=== PATIENT | female | born 1960 | race Caucasian/White ===

== ENCOUNTER → 2016-06-17 | Outpatient (CLI) | payer MEDICARE ==
--- NOTE | 2016-06-17 11:54 | EKG REPORT ---
SEVERITY:- ABNORMAL ECG - SINUS TACHYCARDIA IVCD, CONSIDER ATYPICAL LBBB : Confirmed by: Liz Dailey 17-Jun-2016 11:53:19
== END ==
LOC: OD 07:42
PROVIDERS: ATTEND Nurse Practitioner
DX: K92.1 Melena (principal); I25.9 Chronic ischemic heart disease, unspecified; R74.0 Nonspecific elevation of levels of transaminase and lactic acid dehydrogenase [LDH]; D69.49 Other primary thrombocytopenia; E55.0 Rickets, active; E66.9 Obesity, unspecified; Z12.4 Encounter for screening for malignant neoplasm of cervix; Z12.12 Encounter for screening for malignant neoplasm of rectum
CPT/HCPCS: 36415; 82306; 82607; 83036; 93005; 93010

== ENCOUNTER 2016-10-28 09:18 | Observation (INO) | payer MEDICARE ==
[2016-10-28] MEDS ORDERED: ASPIRIN 81 MG TABLET, CHEWABLE PO ONE (09:43)
--- NOTE | 2016-10-28 09:45 | ER Document Report ---
ED Medical Screen (RME) - General Chief Complaint: Chest Pain Stated Complaint: CHEST PAIN Time Seen by Provider: 10/28/16 09:43 Notes: Patient's chief complaint is chest pain. She says it feels like an elephant sitting on her chest. Started about 1 hour ago while she was urinating. Pain is located in the substernal region. She took aspirin. She tried 3 nitroglycerin and got some relief with them, but the symptoms and pain has returned to its severe level that it sat now. Patient has an extensive cardiac history including 2 bypass surgeries and multiple coronary artery stents. Hypertension. Bipolar disorder. TRAVEL OUTSIDE OF THE [place] IN LAST 30 DAYS: No - Related Data Allergies/Adverse Reactions: No Known Allergies Allergy (Verified 10/28/16 09:29) Past Medical History - Past Medical History Cardiac Medical History: Reports: Hx Congestive Heart Failure, Hx Coronary Artery Disease, Hx Hypertension Renal/ Medical History: Denies: Hx Peritoneal Dialysis Musculoskeltal Medical History: Reports Hx Arthritis Psychiatric Medical History: Reports: Hx Bipolar Disorder, Hx Depression Past Surgical History: Reports: Hx Appendectomy, Hx Cardiac Surgery - CABG x 2, stents, Hx Section, Hx Cholecystectomy, Hx Tubal Ligation - Immunizations Hx Diphtheria, Pertussis, Tetanus Vaccination: Yes Physical Exam - Vital signs Vitals: Temp Pulse Resp BP Pulse Ox 98.6 F 67 18 129/52 H 97 10/28/16 09:29 10/28/16 09:29 10/28/16 09:29 10/28/16 09:29 10/28/16 09:29 Course - Vital Signs Vital signs: Temp Pulse Resp BP Pulse Ox 98.6 F 67 18 129/52 H 97 10/28/16 09:29 10/28/16 09:29 10/28/16 09:29 10/28/16 09:29 10/28/16 09:29
[2016-10-28] MEDS ORDERED: NITROGLYCERIN 2% OINTMENT 1 GM PACKET TP ONE (10:22)
[2016-10-28 10:26] LABS: ABSOLUTE EOSINOPHILS # (AUTO) 0.1 10^3/uL (0.0-0.6); ABSOLUTE LYMPHOCYTES (AUTO) 0.8 10^3/uL (0.5-4.7); ABSOLUTE MONOCYTES (AUTO) 0.3 10^3/uL (0.1-1.4); ABSOLUTE NEUT (AUTO) 2.3 10^3/uL (1.7-8.2); BASOPHILS % (AUTO) 0.8 % (0-2); EOSINOPHILS % (AUTO) 3.5 % (0-6); HEMATOCRIT 35.3 % (36.0-47.0); HEMOGLOBIN 12.1 g/dL (12.0-15.5); LYMPHOCYTES % (AUTO) 22.3 % (13-45); MEAN CORPUSCULAR HEMOGLOBIN 31.1 pg (27.0-33.4); MEAN CORPUSCULAR HGB CONC 34.3 g/dL (32.0-36.0); MEAN CORPUSCULAR VOLUME 91 fl (80-97); MONOCYTES % (AUTO) 7.8 % (3-13); RED CELL DISTRIBUTION WIDTH 16.5 % (11.5-14.0); SEGMENTED NEUTROPHILS % (AUTO) 65.6 % (42-78); WHITE BLOOD COUNT 3.5 10^3/uL (4.0-10.5)
--- NOTE | 2016-10-28 10:35 | EKG REPORT ---
SEVERITY:- ABNORMAL ECG - SINUS RHYTHM NONSPECIFIC INTRAVENTRICULAR CONDUCTION DELAY : Confirmed by: Valentine Orlando MD 28-Oct-2016 10:34:12
[2016-10-28 10:39] LABS: ALANINE AMINOTRANSFERASE 28 U/L (9-52); ALBUMIN 3.6 g/dL (3.5-5.0); ALKALINE PHOSPHATASE 94 U/L (38-126); ANION GAP 10 (5-19); ASPARTATE AMINO TRANSFERASE 55 U/L (14-36); BILIRUBIN,DIRECT 0.4 mg/dL (0.0-0.4); BILIRUBIN,TOTAL 1.1 mg/dL (0.2-1.3); BLOOD UREA NITROGEN 11 mg/dL (7-20); CALCIUM 9.2 mg/dL (8.4-10.2); CARBON DIOXIDE 26 mmol/L (22-30); CHLORIDE 104 mmol/L (98-107); CREATINE KINASE 48 U/L (30-135); CREATININE RESULT 0.72 mg/dL (0.52-1.25); GLUCOSE 97 mg/dL (75-110); POTASSIUM 4.3 mmol/L (3.6-5.0); TOTAL PROTEIN 6.7 g/dL (6.3-8.2)
[2016-10-28 10:49] LABS: CREATINE KINASE MB 1.19 ng/mL (<4.55)
[2016-10-28 10:50] LABS: TROPONIN I < 0.012 ng/mL
--- NOTE | 2016-10-28 10:57 | ER Document Report ---
ED Cardiac - General Chief Complaint: Chest Pain Stated Complaint: CHEST PAIN Time Seen by Provider: 10/28/16 09:43 Notes: Patient is a 56-year-old female, past medical history multiple cardiac stents, CABG, HTN, CHF, presents with 2 hours of substernal chest pain that started while she was urinating this morning. She had this in the past and she required her stents. She took 3 of her sublingual nitros with some relief of her pain. In addition, she took 325 mg aspirin prior to arrival. Her last stress test was ~[address] Akins (partner of Dr. Carranza). Her PMD is Dr. To. She denies shortness of breath, back pain, leg swelling, hemoptysis, cough, nausea, vomiting, fevers, headache, numbness, tingling or radiation of pain. TRAVEL OUTSIDE OF THE [place] IN LAST 30 DAYS: No - Related Data Allergies/Adverse Reactions: No Known Allergies Allergy (Verified 10/28/16 09:29) Past Medical History - General Information source: Patient - Social History Smoking Status: Never Smoker Family History: Reviewed & Not Pertinent, Other - copd Patient has suicidal ideation: No Patient has homicidal ideation: No - Past Medical History Cardiac Medical History: Reports: Hx Congestive Heart Failure, Hx Coronary Artery Disease, Hx Hypertension Renal/ Medical History: Denies: Hx Peritoneal Dialysis Musculoskeltal Medical History: Reports Hx Arthritis Psychiatric Medical History: Reports: Hx Bipolar Disorder, Hx Depression Past Surgical History: Reports: Hx Appendectomy, Hx Cardiac Surgery - CABG x 2, stents, Hx Section, Hx Cholecystectomy, Hx Tubal Ligation - Immunizations Hx Diphtheria, Pertussis, Tetanus Vaccination: Yes Review of Systems - Review of Systems Notes: REVIEW OF SYSTEMS: CONSTITUTIONAL: -fevers, -chills EENT: -eye pain, -difficulty swallowing, -nasal congestion CARDIOVASCULAR: +chest pain, -syncope. RESPIRATORY: -cough, -SOB GASTROINTESTINAL: -abdominal pain, -nausea, -vomiting, -diarrhea GENITOURINARY: -dysuria, -hematuria MUSCULOSKELETAL: -back pain, -neck pain SKIN: -rash or skin lesions. HEMATOLOGIC: -easy bruising or bleeding. LYMPHATIC: -swollen, enlarged glands. NEUROLOGICAL: -altered mental status or loss of consciousness, -headache, - neurologic symptoms PSYCHIATRIC: -anxiety, -depression. ALL OTHER SYSTEMS REVIEWED AND NEGATIVE. Physical Exam - Vital signs Vitals: Temp Pulse Resp BP Pulse Ox 98.6 F 67 18 129/52 H 97 10/28/16 09:29 10/28/16 09:29 10/28/16 09:29 10/28/16 09:29 10/28/16 09:29 - Notes Notes: PHYSICAL EXAMINATION: GENERAL: Well-appearing, well-nourished and in no acute distress. HEAD: Atraumatic, normocephalic. EYES: Pupils equal round and reactive to light, extraocular movements intact, sclera anicteric, conjunctiva are normal. ENT: nares patent, oropharynx clear without exudates. Moist mucous membranes. NECK: Normal range of motion, supple without lymphadenopathy LUNGS: Breath sounds clear to auscultation bilaterally and equal. No wheezes rales or rhonchi. HEART: Regular rate and rhythm without murmurs ABDOMEN: Soft, nontender, normoactive bowel sounds. No guarding, no rebound. No masses appreciated. EXTREMITIES: Normal range of motion, no pitting or edema. No cyanosis. NEUROLOGICAL: Cranial nerves grossly intact. Normal speech, normal gait. Normal sensory and motor exams. PSYCH: Normal mood, normal affect. SKIN: Warm, Dry, normal turgor, no rashes or lesions noted. Course - Re-evaluation Re-evalutation: Pt with substernal chest pain. Her HEART score is 6. Symptoms atypical for PE or aortic dissection at this time. Her last stress test was 5 years ago. Pt will require Obs for further evaluation of her chest pain. She is chest pain free with nitro paste. 10/28/16 11:[address] Ren[place] and will bring patient in for Obs Tele. - Vital Signs Vital signs: Temp Pulse Resp BP Pulse Ox 98.6 F 67 19 129/52 H 97 10/28/16 09:29 10/28/16 09:29 10/28/16 10:05 10/28/16 09:29 10/28/16 10:00 - Laboratory Result Diagrams: 10/28/16 10:00 10/28/16 10:00 Laboratory results interpreted by me: 10/28/16 10/28/16 10:00 10:00 WBC 3.5 L Hct 35.3 L RDW 16.5 H Plt Count 91 L AST 55 H - Diagnostic Test Radiology reviewed: Image reviewed, Reports reviewed Radiology results interpreted by me: CXR: NAD - EKG Interpretation by Me EKG shows normal: Sinus rhythm, [place], Intervals, QRS Complexes, ST-T Waves Rate: Normal [place]/QRS: IVCD Discharge - Discharge Clinical Impression: Chest pain Qualifiers: Chest pain type: unspecified Qualified Code(s): R07.9 - Chest pain, unspecified Condition: Stable Disposition: ADMITTED OBSERVATION Admitting [facility] Admitted: Telemetry Referrals: JAZIEL MORA MD [Primary Care Provider] - Follow up as needed
[2016-10-28] MEDS ORDERED: NITROGLYCERIN 0.4 MG/TAB 25 TAB/BOTTLE SL PRN (12:14)
[2016-10-28] MEDS ORDERED: ONDANSETRON HCL INJ/PF 4 MG/2 ML SDV IV PRN (12:14)
[2016-10-28] MEDS ORDERED: MORPHINE SULFATE 10 MG/ML INJ IV PRN (12:14)
[2016-10-28] MEDS ORDERED: ISOSORBIDE MONONITRATE 30 MG TAB.ER.24H PO ONE (13:15)
--- NOTE | 2016-10-28 14:06 | HISTORY AND PHYSICAL E ---
History and Physical NAME: GUS GRANDE : 1960 AGE: 56Y ADMITTED: 10/28/2016 ROOM: ED09 CHIEF COMPLAINT: "There's an elephant sitting on my chest." HISTORY OF PRESENT ILLNESS: The patient is a 56-year-old female patient of Dr. Stearns and Dr. Orlando's practice who presents to the emergency department today from home with sudden onset of substernal chest tightness and heaviness at 0830 hours this morning, "as if an elephant were sitting on my chest." The pressure radiates up into her jaw and makes her feel breathless. She took 3 sprays of nitroglycerin at home and each time got some relief without complete resolution, at which point she call EMS as she had previously been instructed. On arrival here, she was given another dose of nitroglycerin and placed on oxygen and given a full dose of aspirin as well at 324 mg and is now chest pain free. She was on the toilet urinating at the time, not a particularly stressful situation. Her cardiac risk factors included prior coronary disease including stents x3 followed by a single vessel CABG, followed by 2 additional vessels bypassed most recently in 2008. She is a nondrinker and nonsmoker. There is no family history. She has never had difficulty with her cholesterol that she is aware and she does take an aspirin 325 mg everyday. She underwent stress testing approximately 2-[address] Orlando's office and was told it was "fine." She reports a relative sedentary lifestyle, she is morbidly obese with a BMI of 47 but she denies swelling of her lower extremities, calf pain, and she is not on any hormone replacement therapy. She has no prior history of thromboembolic disease. Evaluation in the emergency department so far is unrevealing. Initial set of cardiac enzymes and EKG showed no acute ischemic changes, however, given her multiple risk factors, we were asked to admit her for cardiac evaluation. ALLERGIES: No known drug allergies. PAST MEDICAL HISTORY: 1. Coronary vascular disease. 2. Morbid obesity. 3. Bipolar disorder. 4. Insomnia. PAST SURGICAL HISTORY: 1. Appendectomy. 2. Cholecystectomy. 3. section. SOCIAL HISTORY: She is a lifetime nonsmoker, drinks an occasional alcoholic beverage on holidays, and denies illicit drug use. FAMILY HISTORY: Negative for coronary artery disease in mom, dad, brothers, and sisters. HOME MEDICATIONS: 1. Aspirin 325 mg daily. 2. Toprol 25 mg b.i.d. 3. Imdur 30 mg daily. 4. Lamotrigine 200 mg at bedtime. 5. Cymbalta 90 mg daily. 6. Ambien 10 mg at bedtime. PHYSICAL EXAMINATION: VITAL SIGNS: Reviewed and are currently stable. Her blood pressure is 136/61, heart rate is in the 60s and regular without ectopy on the monitor, she is afebrile, she is in no respiratory distress, and sats are 100% on 2 L nasal cannula at present. GENERAL: In general, this is morbidly obese, very pleasant, middle aged female is currently sitting upright in bed in no acute distress. Alert and oriented to person, place, and time. HEENT: Head is normocephalic, atraumatic. Extraocular muscles are intact, sclerae are anicteric. Oral mucosa is moist. CARDIAC: Regular rate and rhythm with a soft 2/6 holosystolic murmur heard best at the left second intercostal space that is nonradiating, otherwise, normal S1, S2. VASCULAR: Radial pulses are 2+ and symmetric. Carotid pulses are 2+ and symmetric. There is no carotid bruit. No abdominal bruit. RESPIRATORY: Lungs are clear to auscultation bilaterally with good air entry at the bases and no respiratory distress or accessory muscle use. ABDOMEN: Morbidly obese, soft, nontender, nondistended with good bowel sounds throughout. Difficult to appreciate any masses or hepatomegaly due to the size. EXTREMITIES: There is no cyanosis, clubbing, or edema. There is no palpable cords in the calves. PSYCHIATRIC: Normal affect, normal mood. SKIN: Warm, dry, no rash. DIAGNOSTICS: EKG shows a normal sinus rhythm with a heart rate of 65. There are no ST segment depressions or elevations or T wave inversions to suggest acute ischemia. There is a nonspecific interventricular conduction delay most notable in leads III and V4 and V5. Corrected QT interval 441, axis is 8 degrees. Chest x-ray shows no acute cardiopulmonary disease. No cardiomegaly. Review of her labs: CBC shows a borderline pancytopenia that is chronic for her. WBC is 3.5, H and H 12 and 35, platelet count of 91. Her chemistry including LFTs show no abnormalities. Renal function is good with a creatinine of 0.7. Her initial CKMB and troponin are both within normal limits. ASSESSMENT: 1. Chest pain in a patient with known atherosclerotic coronary vascular disease, previous stenting, and coronary bypass grafting. 2. Cardiac murmur not otherwise specified. 3. Morbid obesity. 4. Bipolar disorder. 5. Insomnia. PLAN: To admit the patient to an observation monitored bed overnight for cardiac rule out with serial cardiac enzymes, EKGs, and echocardiogram given the cardiac murmur to make sure there are no new wall motion abnormalities or valvular abnormalities that would warrant further investigation. We will check a stat D-dimer given her morbid obesity and relative sedentary lifestyle and if markedly elevated, we will check a CTA of the chest to rule out thromboembolic disease. We will check a lipid panel in the morning. If she rules out for acute ischemia, then recommend close outpatient followup with her stone repairer to decide on the need for elective heart cath given her multiple risk factors and elevated HEART score. The patient is in agreement with this treatment plan, expresses no concerns about staying overnight, and is willing to proceed. All questions were asked and answered to her satisfaction. DICTATING PHYSICIAN: BÁRBARA NERI M.D. [id number] PHY#: [id number] ID: [id number] JOB#: [id number] ACCT: [id number] cc:BÁRBARA NERI M.D. >
--- NOTE | 2016-10-28 16:33 | XCELERA REPORT ---
[address] [address] Transthoracic Echocardiogram Report Name: GUS GRANDE Age: 56 yrs Gender: Female : 1960 Patient Status: Inpatient Patient Location: [id number]\S\402\S\A Study Date: 10/28/2016 03:13 PM Height: 67 in Weight: 302 lb BSA: 2.4 m2 Procedure: A complete two-dimensional transthoracic echocardiogram was performed (2D, M-mode, spectral and color flow Doppler). The study was technically difficult with many images being suboptimal in quality. Reason For Study: CP Ordering Physician: BÁRBARA NERI Performed By: Berto Brooke Interpretation Summary The study was technically difficult with many images being suboptimal in quality. The left ventricular ejection fraction is normal. Doppler measurements suggest pseudonormalized left ventricular relaxation, which is associated with grade II/IV or mild to moderate diastolic dysfunction There is mild concentric left ventricular hypertrophy. The left ventricle is grossly normal size. Wall motion cannot be accurately commented on, but no definite regional wall motion abnormalities noted. The right ventricle is mildly dilated. The right ventricular systolic function is normal. The right atrium is moderately dilated. The left atrium is severely dilated. There is a mild amount of mitral regurgitation There is no mitral valve stenosis. There is no aortic valve stenosis No aortic regurgitation is present. There is a trace to mild amount of tricuspid regurgitation There is mild pulmonary hypertension by echo Right ventricular systolic pressure is estimated to be elevated at 30- 40mmHg. The aortic root is not well visualized. The inferior vena cava appeared normal and decreased > 50% with respiration (RAP 5-10 mmHg) There is no pericardial effusion. MMode/2D Measurements \T\ Calculations RVDd: 3.1 cm LVIDd: 5.8 cm FS: 34.2 % Ao root diam: 3.0 cm IVSd: 1.2 cm LVIDs: 3.8 cm EDV(Teich): 166.0 ml LVPWd: 1.2 cm ESV(Teich): 62.3 ml Ao root area: 7.1 cm2 EF(Teich): 62.5 % LA dimension: 6.1 cm Doppler Measurements \T\ Calculations MV E max urbano: MV P1/2t max urbano: Ao V2 max: LV V1 max P.3 cm/sec 115.7 cm/sec 164.8 cm/sec 4.6 mmHg MV A max urbano: MV P1/2t: 60.4 msec Ao max PG: LV V1 max: 88.3 cm/sec 10.9 mmHg 106.7 cm/sec MV E/A: 1.3 MVA(P1/2t): 3.6 cm2 MV dec slope: 561.2 cm/sec2 PA V2 max: TR max urbano: RAP systole: 131.6 cm/sec 229.4 cm/sec 10.0 mmHg PA max PG: TR max P.1 mmHg 6.9 mmHg RVSP(TR): 31.1 mmHg Left Ventricle The left ventricle is grossly normal size. There is mild concentric left ventricular hypertrophy. The left ventricular ejection fraction is normal. Doppler measurements suggest pseudonormalized left ventricular relaxation, which is associated with grade II/IV or mild to moderate diastolic dysfunction. Wall motion cannot be accurately commented on, but no definite regional wall motion abnormalities noted. Right Ventricle The right ventricle is mildly dilated. There is normal right ventricular wall thickness. The right ventricular systolic function is normal. Atria The right atrium is moderately dilated. The left atrium is severely dilated. Interarterial septum not well visualized and not well dopplered. Cannot comment on ASD/PFO presence. Mitral Valve There is mild mitral leaflet calcification. There is mild mitral annular calcification. There is no mitral valve stenosis. There is a mild amount of mitral regurgitation. Aortic Valve The aortic valve is not well visualized secondary to technical limitations. There is no aortic valve stenosis. No aortic regurgitation is present. Tricuspid Valve The tricuspid valve is not well visualized secondary to technical limitations. There is no tricuspid stenosis. There is a trace to mild amount of tricuspid regurgitation. There is mild pulmonary hypertension by echo. Right ventricular systolic pressure is estimated to be elevated at 30-40mmHg. Pulmonic Valve The pulmonic valve is not well visualized. Great Vessels The aortic root is not well visualized. The inferior vena cava appeared normal and decreased > 50% with respiration (RAP 5-10 mmHg). Effusions There is no pericardial effusion. : BÁRBARA NERI > Liz Dailey
[2016-10-28 17:10] LABS: CREATINE KINASE MB 1.09 ng/mL (<4.55)
[2016-10-28 17:16] LABS: TROPONIN I < 0.012 ng/mL
[2016-10-28] MEDS: METOPROLOL TARTRATE 25 MG TABLET PO SCH (21:23)
[2016-10-28] MEDS ORDERED: ATORVASTATIN CALCIUM 40 MG TABLET PO SCH (22:00)
[2016-10-28] MEDS ORDERED: LAMOTRIGINE 100 MG TABLET PO ONE (22:30)
[2016-10-28] MEDS ORDERED: LAMOTRIGINE 100 MG TABLET PO SCH (22:30)
[2016-10-28] MEDS ORDERED: ZOLPIDEM TARTRATE 5 MG TABLET PO PRN (22:47)
[2016-10-28 23:32] LABS: TROPONIN I < 0.012 ng/mL
[2016-10-29 04:58] LABS: CHOLESTEROL 161.75 mg/dL (0-200); Direct HDL 59 mg/dL (>40); TRIGLYCERIDES 201 mg/dL (<150)
[2016-10-29 05:08] LABS: DIRECT LDL 56 mg/dL (<100)
[2016-10-29 05:09] LABS: CREATINE KINASE MB 0.76 ng/mL (<4.55)
[2016-10-29 05:21] LABS: TROPONIN I < 0.012 ng/mL; VLDL CHOLESTEROL 40.2 mg/dL (10-31)
[2016-10-29] MEDS ORDERED: LANSOPRAZOLE 30 MG TAB.RAP.DR PO SCH (06:00)
--- NOTE | 2016-10-29 07:11 | EKG REPORT ---
SEVERITY:- ABNORMAL ECG - SINUS RHYTHM NONSPECIFIC INTRAVENTRICULAR CONDUCTION DELAY : Confirmed by: Valentine Orlando MD 29-Oct-2016 07:10:51
[2016-10-29 08:54] VITALS: BP 130/48
[2016-10-29] MEDS: METOPROLOL TARTRATE 25 MG TABLET PO SCH (09:08)
[2016-10-29] MEDS ORDERED: ASPIRIN 325 MG TABLET, ENT COATED PO SCH (10:00)
[2016-10-29] MEDS ORDERED: ISOSORBIDE MONONITRATE 30 MG TAB.ER.24H PO SCH (10:00)
--- NOTE | 2016-10-29 19:36 | DISCHARGE SUMMARY E ---
Discharge Summary NAME: GUS GRANDE : 1960 AGE: 56Y ADMITTED: 10/28/2016 DISCHARGED: 10/29/2016 DISCHARGE DIAGNOSES: 1. Chest pain. 2. CAD/ASCVD. 3. Morbid obesity. 4. Bipolar disorder. 5. Insomnia. DISCHARGE MEDICATIONS: 1. Aspirin 325 mg daily. 2. Vitamin D 5000 units daily. 3. Duloxetine 90 mg daily. 4. Isosorbide dinitrate 30 mg daily. 5. Lamotrigine 200 mg at bedtime. 6. Loratadine 10 mg daily. 7. Metoprolol tartrate 25 mg b.i.d. 8. Nitroglycerin spray as needed for chest pain. 9. Zolpidem 5 mg at bedtime. DIAGNOSTIC PROCEDURES: Echocardiogram shows grade 2 [id number] diastolic dysfunction with mild concentric left ventricular hypertrophy. No wall motion abnormalities were grossly identified but it was a technically difficult study. Right ventricle was mildly dilated. Right atrium moderately dilated with severe dilatation in the left atrium. Mild amount of mitral regurgitation. Mild amount of tricuspid regurgitation with mild pulmonary hypertension. Aortic root was not well visualized. Laboratory evaluation including serial cardiac enzymes were negative x4. Cholesterol panel shows triglycerides of 201, cholesterol 162, LDL is 56, VLDL is 40, and HDL is 59. CHIEF COMPLAINT: "There is an elephant sitting on my chest." HISTORY OF PRESENT ILLNESS: This is a 56-year-old female patient of Dr. Stearns and Dr. Orlando who presented to the emergency department from home with sudden onset of substernal chest tightness and heaviness occurring at 0830 the morning of her arrival and described as an elephant sitting on her chest. She reported the pressure radiating up into her jaw and leaving her breathless. She took 3 sprays of nitro intranasal and each time got some relief without complete resolution, at which point she called EMS as she had been instructed to do. On arrival she was given another dose of nitroglycerin and placed on oxygen with a full dose of aspirin provided and was then chest pain free. She has significant cardiac risk factors with prior stenting and a total of 3-vessel coronary artery bypass grafting, most recently in 2008. As a result, we were asked to admit the patient for further evaluation and management. She was placed on telemetry without any significant ectopy noted overnight and she ruled out for acute cardiac ischemia with negative cardiac enzymes x4 and a negative echocardiogram for acute ischemia. She had no recurrence of her symptoms since her admission. She has an established relationship with Dr. Orlando and an established disagreement with automation lead tanning solution maker and so has elected not to perform stress testing at this facility at this time. She is hemodynamically stable and has ruled out for acute ischemia, and so I do believe she can complete her workup as an outpatient. I recommend close outpatient followup with her automation lead next week for further risk stratification and they can perform in-office stress testing if so desired or refer to cardiac cath center of her choice if warranted. She is in agreement with this treatment plan. She is to return to the emergency department if she were to have any decompensation in her condition or recurrence of her symptoms and states clear understanding and willingness to do so. On the day of discharge, she is sitting upright in bed, alert, oriented to person, place and time, breathing easily without any difficulty. Cardiac is regular rate and rhythm with a soft 2/6 holosystolic murmur heard best at the right second intercostal space, nonradiating in nature. Abdomen is obese, soft, nontender, nondistended, with good bowel sounds throughout. No edema of the extremities. No JVD. Radial pulses are 2+ and symmetric. At this point she is stable for discharge home. DICTATING PHYSICIAN: BÁRBARA NERI M.D. [id number] PHY#: [id number] ID: [id number] JOB#: [id number] ACCT: [id number] cc:BÁRBARA NERI M.D. >
== END 2016-10-29 11:37 | disposition home or self-care (01) ==
LOC: ER 09:18 → UNDOADMOB 12:10 → EH 12:10 → 4N 15:52
PROVIDERS: ADMIT Internal Medicine; ATTEND Internal Medicine
DX: R07.89 Other chest pain (principal); I25.10 Atherosclerotic heart disease of native coronary artery without angina pectoris; E66.01 Morbid (severe) obesity due to excess calories; F31.9 Bipolar disorder, unspecified; G47.00 Insomnia, unspecified; I51.7 Cardiomegaly; I08.1 Rheumatic disorders of both mitral and tricuspid valves; I27.2 Other secondary pulmonary hypertension; D61.818 Other pancytopenia; R01.1 Cardiac murmur, unspecified; I51.89 Other ill-defined heart diseases; Z95.5 Presence of coronary angioplasty implant and graft; Z95.1 Presence of aortocoronary bypass graft; Z79.82 Long term (current) use of aspirin; Z68.42 Body mass index [BMI] 45.0-49.9, adult; Z90.49 Acquired absence of other specified parts of digestive tract; Z82.5 Family history of asthma and other chronic lower respiratory diseases
CPT/HCPCS: 93005 ×2; 99285; 36415 ×2; 82553 ×2; 82550; 85025; 80053; 84484 ×2; 85379; 80061; 93306; 71010; 93010 ×2; G0378 ×3; A9270 ×6; J3490 ×2

== ENCOUNTER 2017-01-01 14:32 | Emergency (ER) | payer MEDICARE ==
--- NOTE | 2017-01-01 15:03 | ER Document Report ---
ED Syncope and Near Syncope - General Chief Complaint: Syncope Stated Complaint: DIZZINESS Time Seen by Provider: 01/01/17 14:42 Mode of Arrival: Medic Information source: Patient, Relative Notes: Patient is a 56-year-old female who presents to the ER via EMS today for syncopal episode that occurred prior to arrival. Patient states that she has been sick with strep throat over the past week, started on amoxicillin yesterday , has had body aches and chills but did not feel dizzy until she got up to go to the bathroom prior to arrival. She states that this time she did feel lightheaded and "blacked out." She does not remember passing out but does remember waking up on the floor where her daughter had guided her to the floor. She did not hit her head per daughter. She states this has happened before but it was years ago. She states that this morning she did have one episode of dark and tarry stools. She has never had any bleeding from her rectum before. She denies any nausea vomiting or abdominal pain, fevers or chills at this time. TRAVEL OUTSIDE OF THE [place] IN LAST 30 DAYS: No - Related Data Allergies/Adverse Reactions: No Known Allergies Allergy (Verified 10/28/16 09:29) Past Medical History - General Information source: Patient, Relative - Social History Smoking Status: Unknown if Ever Smoked Family History: Reviewed & Not Pertinent, Other - copd - Past Medical History Cardiac Medical History: Reports: Hx Congestive Heart Failure, Hx Coronary Artery Disease, Hx Hypertension Renal/ Medical History: Denies: Hx Peritoneal Dialysis Musculoskeltal Medical History: Reports Hx Arthritis Psychiatric Medical History: Reports: Hx Bipolar Disorder, Hx Depression Past Surgical History: Reports: Hx Appendectomy, Hx Cardiac Surgery - CABG x 2, stents, Hx Section, Hx Cholecystectomy, Hx Tubal Ligation - Immunizations Hx Diphtheria, Pertussis, Tetanus Vaccination: Yes Review of Systems - Review of Systems Constitutional: See HPI EENT: See HPI Cardiovascular: No symptoms reported Respiratory: No symptoms reported Gastrointestinal: See HPI Genitourinary: No symptoms reported Female Genitourinary: No symptoms reported Musculoskeletal: No symptoms reported Skin: No symptoms reported Hematologic/Lymphatic: No symptoms reported Neurological/Psychological: See HPI Physical Exam - Vital signs Vitals: Pulse Resp BP Pulse Ox 78 19 139/40 H 100 01/01/17 14:33 01/01/17 14:33 01/01/17 14:33 01/01/17 14:33 - Notes Notes: PHYSICAL EXAMINATION: GENERAL: weak appearing, but in no acute distress. HEAD: Atraumatic, normocephalic. EYES: Pupils equal round and reactive to light, extraocular movements intact, sclera anicteric, conjunctiva are normal. ENT: ear canals without erythema or foreign body, TMs pearly ratliff with good bony landmarks, nares patent, oropharynx clear without exudates. Moist mucous membranes. NECK: Normal range of motion, supple without lymphadenopathy LUNGS: CTAB and equal. No wheezes rales or rhonchi. HEART: Regular rate and rhythm without murmurs ABDOMEN: Soft, no tenderness. No guarding, no rebound BACK: no vertebral tenderness, normal ROM GI/: no CVA tenderness rectal: dark, tarry blood to buttocks and around anus, in underwear EXTREMITIES: Normal range of motion, no pitting edema. No cyanosis. NEUROLOGICAL: Cranial nerves grossly intact. Normal sensory/motor exams. PSYCH: Normal mood, normal affect. SKIN: Warm, Dry, normal turgor, no rashes or lesions noted Course - Re-evaluation Re-evalutation: 01/01/17 16:21 Patient's hemoglobin is 6.6, hematocrit of 19, patient is obviously having dark , tarry stools rectal exam, type and screen, 2 units of packed red blood cells have been ordered at this time. Patient is receiving IV fluids. Dr. Fidel oFreman , hospitalist at [facility] agreed to accept patient at this time as we do not have gastroenterology regional guide. 01/01/17 21:32 transport here to get pt, no complaints at this time. stable for discharge. 01/04/17 16:00 01/04/17 16:00 - Vital Signs Vital signs: Temp Pulse Resp BP Pulse Ox 98.7 F 78 18 127/81 H 99 01/01/17 20:35 01/01/17 19:15 01/01/17 21:01 01/01/17 21:01 01/01/17 21:01 - Laboratory Result Diagrams: 01/01/17 14:40 01/01/17 14:40 Laboratory results interpreted by me: 01/01/17 01/01/17 01/01/17 14:40 14:40 15:45 RBC 2.22 L Hgb 6.6 L Hct 19.5 L RDW 16.3 H Plt Count 101 L BUN 40 H Glucose 138 H Total Protein 5.4 L Albumin 2.8 L Crossmatch See Detail Discharge - Discharge Clinical Impression: Syncope and collapse GI bleed Qualifiers: GI bleed type/associated pathology: unspecified gastrointestinal hemorrhage type Qualified Code(s): K92.2 - Gastrointestinal hemorrhage, unspecified Condition: Stable Disposition: [facility] Referrals: JAZIEL MORA MD [Primary Care Provider] - Follow up as needed
[2017-01-01] MEDS ORDERED: NORMAL SALINE 1000 ML 1,000 ML IV ONE ×2 (15:04→16:24)
[2017-01-01 15:31] LABS: ABSOLUTE EOSINOPHILS # (AUTO) 0.1 10^3/uL (0.0-0.6); ABSOLUTE LYMPHOCYTES (AUTO) 1.4 10^3/uL (0.5-4.7); ABSOLUTE MONOCYTES (AUTO) 0.5 10^3/uL (0.1-1.4); ABSOLUTE NEUT (AUTO) 5.5 10^3/uL (1.7-8.2); BASOPHILS % (AUTO) 0.3 % (0-2); EOSINOPHILS % (AUTO) 0.9 % (0-6); HEMATOCRIT 19.5 % (36.0-47.0); HGB HCT DIFFERENCE 0.3; LYMPHOCYTES % (AUTO) 18.4 % (13-45); MEAN CORPUSCULAR HEMOGLOBIN 29.7 pg (27.0-33.4); MEAN CORPUSCULAR HGB CONC 33.9 g/dL (32.0-36.0); MEAN CORPUSCULAR VOLUME 88 fl (80-97); MONOCYTES % (AUTO) 6.5 % (3-13); RED BLOOD COUNT 2.22 10^6/uL (3.72-5.28); RED CELL DISTRIBUTION WIDTH 16.3 % (11.5-14.0); SEGMENTED NEUTROPHILS % (AUTO) 73.9 % (42-78); WHITE BLOOD COUNT 7.4 10^3/uL (4.0-10.5)
[2017-01-01 15:35] LABS: HEMOGLOBIN 6.6 g/dL (12.0-15.5)
--- NOTE | 2017-01-01 15:35 | RADIOLOGY REPORT (SQ) ---
EXAM DESCRIPTION: CT HEAD WITHOUT COMPLETED DATE/TIME: 01/01/2017 3:26 pm REASON FOR STUDY: syncope COMPARISON: 04/29/2015 TECHNIQUE: Axial images acquired through the brain without intravenous contrast. Images reviewed wi th bone, brain and subdural windows. Images stored on PACS. All CT scanners at this facility use dose modulation, iterative reconstruction, and/or weight based d osing when appropriate to reduce radiation dose to as low as reasonably achievable (ALARA). [facility]: Dose Right [facility]: CareDose [facility]: Dose Right [facility]: Teradose 4D [facility]: [employer] RADIATION DOSE: Up-to-date CT equipment and radiation dose reduction techniques were employed. CTDIv ol: 64.6 mGy. DLP: 1163 mGy-cm. mGy. LIMITATIONS: None. FINDINGS: VENTRICLES: Normal size and contour. CEREBRUM: No masses. No hemorrhage. No midline shift. Normal delgado/white matter differentiation. N o evidence for acute infarction. CEREBELLUM: No masses. No hemorrhage. No alteration of density. No evidence for acute infarction. EXTRAAXIAL SPACES: No fluid collections. No masses. ORBITS AND GLOBE: No intra- or extraconal masses. Normal contour of globe without masses. CALVARIUM: No fracture. PARANASAL SINUSES: No fluid or mucosal thickening. SOFT TISSUES: No mass or hematoma. OTHER: No other significant finding. IMPRESSION: NO ACUTE INTRACRANIAL PROCESS. NO SIGNIFICANT CHANGE FROM PRIOR STUDY. TECHNICAL DOCUMENTATION: JOB ID: [id number] Quality ID # [id number]: Final reports with documentation of one or more dose reduction techniques (e.g., Au tomated exposure control, adjustment of the mA and/or kV according to patient size, use of iterative reconstruction technique) 2010 [employer]- All Rights Reserved
[2017-01-01 15:38] LABS: ALANINE AMINOTRANSFERASE 25 U/L (9-52); ALBUMIN 2.8 g/dL (3.5-5.0); ALKALINE PHOSPHATASE 66 U/L (38-126); ANION GAP 11 (5-19); ASPARTATE AMINO TRANSFERASE 22 U/L (14-36); BILIRUBIN,DIRECT 0.4 mg/dL (0.0-0.4); BILIRUBIN,TOTAL 0.9 mg/dL (0.2-1.3); BLOOD UREA NITROGEN 40 mg/dL (7-20); CALCIUM 8.4 mg/dL (8.4-10.2); CARBON DIOXIDE 24 mmol/L (22-30); CHLORIDE 105 mmol/L (98-107); CREATINE KINASE 45 U/L (30-135); CREATININE RESULT 0.95 mg/dL (0.52-1.25); GLUCOSE 138 mg/dL (75-110); POTASSIUM 4.5 mmol/L (3.6-5.0); SODIUM 139.7 mmol/L (137-145); TOTAL PROTEIN 5.4 g/dL (6.3-8.2)
--- NOTE | 2017-01-01 15:40 | RADIOLOGY REPORT (SQ) ---
EXAM DESCRIPTION: CHEST SINGLE VIEW COMPLETED DATE/TIME: 01/01/2017 3:31 pm REASON FOR STUDY: syncope COMPARISON: 10/20/2014 EXAM PARAMETERS: NUMBER OF VIEWS: One view. TECHNIQUE: Single frontal radiographic view of the chest acquired. RADIATION DOSE: NA LIMITATIONS: None. FINDINGS: LUNGS AND PLEURA: No new opacities, masses or pneumothorax. No pleural effusion. MEDIASTINUM AND HILAR STRUCTURES: No masses. Contour normal. HEART AND VASCULAR STRUCTURES: Heart stable in size. Normal vasculature. BONES: No acute findings. HARDWARE: Stable. OTHER: No other significant finding. IMPRESSION: NO ACUTE RADIOGRAPHIC FINDING IN THE CHEST. NO SIGNIFICANT CHANGE FROM PRIOR STUDY. TECHNICAL DOCUMENTATION: JOB ID: [id number]
[2017-01-01] MEDS ORDERED: NORMAL SALINE 250 ML IV PRN (15:49)
[2017-01-01 15:50] LABS: TROPONIN I < 0.012 ng/mL
[2017-01-01 17:32] LABS: APPEARANCE,URINE SLIGHTLY-CLOUDY; BILIRUBIN,URINE NEGATIVE (NEGATIVE); GLUCOSE, URINE NEGATIVE (NEGATIVE); KETONES,URINE NEGATIVE (NEGATIVE); LEUKOCYTE ESTERASE,URINE NEGATIVE (NEGATIVE); NITRITE,URINE NEGATIVE (NEGATIVE); PROTEIN,URINE NEGATIVE (NEGATIVE); URINE SPECIFIC GRAVITY 1.025; UROBILINOGEN,URINE NEGATIVE mg/dL (<2.0)
[2017-01-01 17:42] LABS: URINE BARBITURATES SCREEN NEGATIVE; URINE METHADONE SCREEN NEGATIVE; URINE OPIATES LOW NEGATIVE; URINE PHENCYCLIDINE SCREEN NEGATIVE
--- NOTE | 2017-01-01 19:39 | ER Document Report ---
Doctor's Note Notes: 01/01/17 19:37 Reassessed at the bedside awaiting transportation to [facility] tenderness today and a being around 9:00 she is well-appearing nontoxic blood pressure and heart rate are stable she is receiving blood. She has a GCS of 15 and denies needing anything additional at this time. 118/40 hr 72
[2017-01-01 21:09] VITALS: BP 127/81
--- NOTE | 2017-01-01 21:16 | ER Document Report ---
Doctor's Note Notes: 01/01/17 21:15 EMS is here to transport the patient to [facility] I again saw her at the bedside she is awake alert with no distress and stable vital signs. And I re- signed the emtala form for transfer.
--- NOTE | 2017-01-02 13:40 | EKG REPORT ---
SEVERITY:- ABNORMAL ECG - SINUS RHYTHM NONSPECIFIC INTRAVENTRICULAR CONDUCTION DELAY : Confirmed by: Valentine Orlando MD 02-Jan-2017 13:39:46
== END 2017-01-01 21:35 | disposition short-term general hospital (02) ==
LOC: ER 14:32
DX: K92.2 Gastrointestinal hemorrhage, unspecified (principal); R55 Syncope and collapse; J02.0 Streptococcal pharyngitis; I25.10 Atherosclerotic heart disease of native coronary artery without angina pectoris; I10 Essential (primary) hypertension; Z90.49 Acquired absence of other specified parts of digestive tract; Z95.1 Presence of aortocoronary bypass graft; Z98.61 Coronary angioplasty status
CPT/HCPCS: 93005; 99285; 86900; 86901; 36415; 87070; 82553; 36430; 86850; 87880; 82550; 83735; 85025; 82272; 80053; 81001; 84484; 80307; 86920; 71010; 70450; 93010; P9016; J7030

== ENCOUNTER 2017-01-14 17:14 | Emergency (ER) | payer MEDICARE ==
[2017-01-14] MEDS ORDERED: METHYLPREDNISOLONE INJ 125 MG/2 ML SDV IV ONE (17:18)
[2017-01-14] MEDS ORDERED: IPRATROPIUM/ALBUTEROL 0.5-2.5 MG/3 ML AMPUL NEB ONE (17:18)
--- NOTE | 2017-01-14 17:41 | ER Document Report ---
ED Respiratory Problem - General Chief Complaint: Shortness Of Breath Stated Complaint: SHORTNESS OF BREATH Time Seen by Provider: 01/14/17 17:16 Notes: The patient is a 56-year-old female, past medical history bipolar, CAD, hypertension, prior wheezing episodes, presents with 10 minutes of wheezing and shortness of breath that started after she was walking to the bathroom. She has had this multiple times and it resolved without any intervention. She has never been diagnosed with asthma or COPD and has never smoked. She denies chest pain, nausea, vomiting, back pain, leg swelling, fevers, sputum, hemoptysis, recent travel or back pain. TRAVEL OUTSIDE OF THE [place] IN LAST 30 DAYS: No - Related Data Allergies/Adverse Reactions: No Known Allergies Allergy (Verified 10/28/16 09:29) Past Medical History - General Information source: Patient, Relative - Social History Smoking Status: Never Smoker Family History: Reviewed & Not Pertinent, Other - copd - Past Medical History Cardiac Medical History: Reports: Hx Congestive Heart Failure, Hx Coronary Artery Disease, Hx Hypertension Renal/ Medical History: Denies: Hx Peritoneal Dialysis Musculoskeltal Medical History: Reports Hx Arthritis Psychiatric Medical History: Reports: Hx Bipolar Disorder, Hx Depression Past Surgical History: Reports: Hx Appendectomy, Hx Cardiac Surgery - CABG x 2, stents, Hx Section, Hx Cholecystectomy, Hx Tubal Ligation - Immunizations Hx Diphtheria, Pertussis, Tetanus Vaccination: Yes Review of Systems - Review of Systems Notes: REVIEW OF SYSTEMS: CONSTITUTIONAL: -fevers, -chills EENT: -eye pain, -difficulty swallowing, -nasal congestion CARDIOVASCULAR:-chest pain, -syncope. RESPIRATORY: -cough, +SOB GASTROINTESTINAL: -abdominal pain, - nausea, -vomiting, -diarrhea GENITOURINARY: -dysuria, -hematuria MUSCULOSKELETAL: -back pain, -neck pain SKIN: -rash or skin lesions. HEMATOLOGIC: -easy bruising or bleeding. LYMPHATIC: -swollen, enlarged glands. NEUROLOGICAL: -altered mental status or loss of consciousness, -headache, - neurologic symptoms PSYCHIATRIC: -anxiety, -depression. ALL OTHER SYSTEMS REVIEWED AND NEGATIVE. Physical Exam - Vital signs Vitals: BP 192/63 H 01/14/17 17:17 - Notes Notes: PHYSICAL EXAMINATION: GENERAL: Well-appearing, well-nourished and in no acute distress. HEAD: Atraumatic, normocephalic. EYES: Pupils equal round and reactive to light, extraocular movements intact, sclera anicteric, conjunctiva are normal. ENT: nares patent, oropharynx clear without exudates. Moist mucous membranes. NECK: Normal range of motion, supple without lymphadenopathy LUNGS: Tachypnea, mild end-expiratory wheezing HEART: Regular rate and rhythm without murmurs ABDOMEN: Soft, nontender, normoactive bowel sounds. No guarding, no rebound. No masses appreciated. EXTREMITIES: Normal range of motion, no pitting or edema. No cyanosis. NEUROLOGICAL: Cranial nerves grossly intact. Normal speech, normal gait. Normal sensory and motor exams. PSYCH: Normal mood, normal affect. SKIN: Warm, Dry, normal turgor, no rashes or lesions noted. Course - Re-evaluation Re-evalutation: Patient seen immediately on arrival. After DuoNeb and steroids, patient wheezing has completely resolved. She is no longer tachypneic and her oxygenation is remaining above 93%. Lactate sent, which was elevated, most likely due to her tachypnea and increased work of breathing. This improved after 1 L of fluids and improvement of her respiratory status. Do not suspect sepsis without fever evidence of pneumonia on chest x-ray. Patient has never been diagnosed with asthma or COPD. Suspect that there may be a component of vocal cord dysfunction that is contributing to her symptoms. 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 Given strict return precautions and she understands. - Vital Signs Vital signs: Temp Pulse Resp BP Pulse Ox 18 133/75 H 96 01/14/17 21:01 01/14/17 21:01 01/14/17 21:01 - Laboratory Result Diagrams: 01/14/17 17:25 01/14/17 17:25 Laboratory results interpreted by me: 01/14/17 01/14/17 01/14/17 17:25 17:25 17:25 RBC 2.93 L Hgb 8.1 L Hct 25.5 L MCHC 31.7 L RDW 17.8 H Plt Count 87 L Glucose 113 H Lactic Acid 5.2 H 01/14/17 20:55 RBC Hgb Hct MCHC RDW Plt Count Glucose Lactic Acid 2.2 H - Diagnostic Test Radiology reviewed: Image reviewed, Reports reviewed Radiology results interpreted by me: CXR: NAD - EKG Interpretation by Me EKG shows normal: Sinus rhythm, Grayson, Intervals, QRS Complexes, ST-T Waves Rate: Normal Grayson/QRS: IVCD When compared to previous EKG there are: No significant change Discharge - Discharge Clinical Impression: Wheezing Condition: Stable Disposition: HOME, SELF-CARE Additional Instructions: BRONCHITIS WITH BRONCHOSPASM (WHEEZING): You have bronchitis with bronchospasm (wheezing). Sometimes people develop wheezing with a chest cold. This occurs either because of an underlying tendency toward asthma or because the virus itself irritates the bronchial tubes. This irritation causes cough, shortness of breath, and wheezing. Emergency treatment of bronchospasm may include adrenaline shots or bronchodilator aerosol. You may feel lightheaded and have a rapid pulse for an hour or two. Rest and get plenty of fluids. At home, we'll treat you with a bronchodilator inhaler. Corticosteroids may be required for some patients. Until you recover, avoid chemical fumes, dusts, pollens, and exercising in very cold or dry air. If you smoke, stop now! Most cases of bronchitis get better without antibiotics. We prescribe antibiotics when we believe bacteria are damaging your airways, or if there's high risk the bronchitis will worsen into pneumonia. Increase your fluid intake. A cool mist humidifier may make your lungs more comfortable. An expectorant (cough medicine that loosens phlegm) can help. Repeated episodes of bronchitis and bronchospasm may result in lung damage -- for example, chronic bronchitis, recurrent pneumonias, or emphysema. If you develop a fever, increased wheezing, chest pain, or severe shortness of breath, you should contact the doctor immediately. INHALED BRONCHODILATORS: You have received a treatment of and/or prescription for an inhaled bronchodilator -- a medication which stimulates the airways in the lung to dilate. This improves the flow of air in asthma, bronchitis, and emphysema. These medicines have some similarity to adrenaline, and can cause similar side effects: shakiness, racing heart, and a sense of nervousness. These side effects decrease with time. Contact your doctor if these side effects are severe. Do not over-use the medicine. Too-frequent use of the inhaler may make it ineffective. Call your doctor if the inhaler is not controlling your symptoms at the prescribed doses. STEROID MEDICATION: You have been given an injection of or oral medicine of the cortisone/ steroid class. This medication is used to control inflammation or allergy. Juan t is usually only given for a short period of time, until the acute process subsides. There are usually no side effects from short-term use of cortisone-like medications. Some persons feel an increased sense of well-being and are not sleepy at bedtime. Long-term use of cortisone medications is best avoided, unless required for a severe condition. If your condition does not remit, or relapses after the course of corticosteroid medication, you should consult your physician. SMOKING: If you smoke, you should stop smoking. The tar and chemicals in cigarette smoke are harmful. Smoking has been shown to cause: emphysema chronic bronchitis lung cancer mouth and throat cancer stomach and pancreas cancer premature aging defects In addition, smoking increases ear and lung infections in children of smokers. FOLLOW-UP CARE: If you have been referred to a physician for follow-up care, call the physician s office for an appointment as you were instructed or within the next two days. If you experience worsening or a significant change in your symptoms, notify the physician immediately or return to the Emergency Department at any time for re-evaluation. Prescriptions: Albuterol Sulfate [Proair HFA Inhalation Aerosol 8.5 gm MDI] 2 puff IH Q4H PRN # 1 mdi PRN Reason: Prednisone [Deltasone 20 mg Tablet] 3 tab PO DAILY 4 Days Referrals: SUZAN SIU PA-C [Primary Care Provider] - Follow up as needed ROGELIO TURNER MD [ACTIVE STAFF] - Follow up as needed
[2017-01-14 17:43] LABS: ABSOLUTE EOSINOPHILS # (AUTO) 0.1 10^3/uL (0.0-0.6); ABSOLUTE MONOCYTES (AUTO) 0.3 10^3/uL (0.1-1.4); ABSOLUTE NEUT (AUTO) 2.8 10^3/uL (1.7-8.2); BASOPHILS % (AUTO) 0.7 % (0-2); EOSINOPHILS % (AUTO) 1.9 % (0-6); HEMATOCRIT 25.5 % (36.0-47.0); HEMOGLOBIN 8.1 g/dL (12.0-15.5); HGB HCT DIFFERENCE -1.2; LYMPHOCYTES % (AUTO) 23.2 % (13-45); MEAN CORPUSCULAR HEMOGLOBIN 27.5 pg (27.0-33.4); MEAN CORPUSCULAR HGB CONC 31.7 g/dL (32.0-36.0); MEAN CORPUSCULAR VOLUME 87 fl (80-97); MONOCYTES % (AUTO) 7.7 % (3-13); RED BLOOD COUNT 2.93 10^6/uL (3.72-5.28); RED CELL DISTRIBUTION WIDTH 17.8 % (11.5-14.0); SEGMENTED NEUTROPHILS % (AUTO) 66.5 % (42-78); WHITE BLOOD COUNT 4.1 10^3/uL (4.0-10.5)
[2017-01-14 17:54] LABS: VENOUS BLOOD BASE EXCESS -1.4 mmol/L; VENOUS BLOOD HCO3 25.2 mmol/L (20-32); VENOUS BLOOD PCO2 52.9 mmHg (35-63); VENOUS BLOOD PH 7.3 (7.30-7.42)
[2017-01-14 18:05] LABS: ALANINE AMINOTRANSFERASE 29 U/L (9-52); ALBUMIN 3.8 g/dL (3.5-5.0); ALKALINE PHOSPHATASE 106 U/L (38-126); ANION GAP 13 (5-19); ASPARTATE AMINO TRANSFERASE 36 U/L (14-36); BILIRUBIN,DIRECT 0.4 mg/dL (0.0-0.4); BLOOD UREA NITROGEN 18 mg/dL (7-20); CALCIUM 8.7 mg/dL (8.4-10.2); CARBON DIOXIDE 24 mmol/L (22-30); CHLORIDE 101 mmol/L (98-107); CREATININE RESULT 0.94 mg/dL (0.52-1.25); GLUCOSE 113 mg/dL (75-110); LIPASE 169.8 U/L (23-300); POTASSIUM 4.8 mmol/L (3.6-5.0); SODIUM 137.9 mmol/L (137-145); TOTAL PROTEIN 6.8 g/dL (6.3-8.2)
[2017-01-14] MEDS ORDERED: NORMAL SALINE 1000 ML 1,000 ML IV ONE (18:12)
--- NOTE | 2017-01-14 18:15 | RADIOLOGY REPORT (SQ) ---
EXAM DESCRIPTION: CHEST SINGLE VIEW COMPLETED DATE/TIME: 01/14/2017 5:40 pm REASON FOR STUDY: sob COMPARISON: 01/01/2017 EXAM PARAMETERS: NUMBER OF VIEWS: One view. TECHNIQUE: Single frontal radiographic view of the chest acquired. RADIATION DOSE: NA LIMITATIONS: None. FINDINGS: LUNGS AND PLEURA: Pulmonary vascular congestion. No infiltrate or effusion. MEDIASTINUM AND HILAR STRUCTURES: No masses. Contour normal. HEART AND VASCULAR STRUCTURES: Cardiomegaly with pulmonary vascular congestion but no pulmonary edema . BONES: No acute findings. HARDWARE: Sternotomy wires. OTHER: No other significant finding. IMPRESSION: Cardiomegaly with pulmonary vascular congestion but no martín CHF. TECHNICAL DOCUMENTATION: JOB ID: [id number]
[2017-01-14 18:16] LABS: TROPONIN I < 0.012 ng/mL
--- NOTE | 2017-01-14 18:59 | EKG REPORT ---
SEVERITY:- ABNORMAL ECG - SINUS RHYTHM PROBABLE LEFT ATRIAL ABNORMALITY NONSPECIFIC INTRAVENTRICULAR CONDUCTION DELAY : Confirmed by: Reagan Chavarria MD 14-Jan-2017 18:59:14
[2017-01-14 21:31] VITALS: BP 133/75
== END 2017-01-14 21:39 | disposition home or self-care (01) ==
LOC: ER 17:14
DX: R06.2 Wheezing (principal); R06.02 Shortness of breath; R74.0 Nonspecific elevation of levels of transaminase and lactic acid dehydrogenase [LDH]; I25.10 Atherosclerotic heart disease of native coronary artery without angina pectoris; I10 Essential (primary) hypertension; Z95.1 Presence of aortocoronary bypass graft; Z98.61 Coronary angioplasty status; I45.9 Conduction disorder, unspecified
CPT/HCPCS: 93005; 94640; 99285; 96361; 96374; 36415; 83690; 85025; 80053; 84484; 82803; 83605; 83880; 71010; 93010; J2930; J7030; A9270; J7620

== ENCOUNTER 2017-01-15 10:09 | Emergency (ER) | payer MEDICARE ==
[2017-01-15] MEDS ORDERED: RACEPINEPHRINE HCL 2.25% NEB 0.5 ML AMPUL NEB ONE (10:40)
[2017-01-15] MEDS ORDERED: LORAZEPAM INJ 2 MG/1 ML VIAL IV ONE (10:45)
--- NOTE | 2017-01-15 10:45 | ER Document Report ---
ED General - General Chief Complaint: Shortness Of Breath Stated Complaint: DIFFICULTY BREATHING Time Seen by Provider: 01/15/17 10:27 Mode of Arrival: Medic Information source: Patient Notes: 56-year-old female presents with complaints of difficulty breathing. Patient has a history of sleep apnea notes she was here yesterday. Patient at that time and was given steroids inhaler but notes pharmacies were closed last night and as a result they are unable to get her medications. Daughter notes patient has been confused today, and her sleep has been trying to grab at things. Patient does not wear her BiPAP machine at nighttime. Patient was also recently in the hospital for a GI bleed have received 3 units of blood at that time. Patient notes she is very anxious as a result TRAVEL OUTSIDE OF THE [place] IN LAST 30 DAYS: No - HPI Onset: Yesterday Onset/Duration: Persistent Severity: Mild Pain Level: 1 Associated symptoms: None Exacerbated by: Denies Relieved by: Denies Similar symptoms previously: No Recently seen / treated by doctor: No - Related Data Allergies/Adverse Reactions: No Known Allergies Allergy (Verified 10/28/16 09:29) Past Medical History - Social History Smoking Status: Never Smoker Cigarette use (# per day): No Chew tobacco use (# tins/day): No Smoking Education Provided: No Family History: Reviewed & Not Pertinent, Other - copd Patient has suicidal ideation: No Patient has homicidal ideation: No - Past Medical History Cardiac Medical History: Reports: Hx Congestive Heart Failure, Hx Coronary Artery Disease, Hx Hypertension Renal/ Medical History: Denies: Hx Peritoneal Dialysis Musculoskeltal Medical History: Reports Hx Arthritis Psychiatric Medical History: Reports: Hx Bipolar Disorder, Hx Depression Past Surgical History: Reports: Hx Appendectomy, Hx Cardiac Surgery - CABG x 2, stents, Hx Section, Hx Cholecystectomy, Hx Tubal Ligation - Immunizations Hx Diphtheria, Pertussis, Tetanus Vaccination: Yes Review of Systems - Review of Systems Notes: REVIEW OF SYSTEMS: CONSTITUTIONAL : Denies fever, chills, or sweats. Denies recent illness. EENT: Denies eye, ear, throat, or mouth pain or symptoms. Denies nasal or sinus congestion or discharge. Denies throat, tongue, or mouth swelling or difficulty swallowing. CARDIOVASCULAR: Denies chest pain. Denies palpitations or racing or irregular heart beat. Denies ankle edema. RESPIRATORY: Admits to shortness of breath difficulty breathing GASTROINTESTINAL: Denies abdominal pain or distention. Denies nausea, vomiting , or diarrhea. Denies blood in vomitus, stools, or per rectum. Denies black, tarry stools. Denies constipation. GENITOURINARY: Denies difficulty urinating, painful urination, burning, frequency, blood in urine, or discharge. FEMALE GENITOURINARY: Denies vaginal bleeding, heavy or abnormal periods, irregular periods. Denies vaginal discharge or odor. MUSCULOSKELETAL: Denies back or neck pain or stiffness. Denies joint pain or swelling. SKIN: Denies rash, lesions or sores. HEMATOLOGIC : Denies easy bruising or bleeding. LYMPHATIC: Denies swollen, enlarged glands. NEUROLOGICAL: Daughter notes confusion PSYCHIATRIC: Admits to anxiety ALL OTHER SYSTEMS REVIEWED AND NEGATIVE. PHYSICAL EXAMINATION: GENERAL: Well-appearing, well-nourished and in no acute distress. HEAD: Atraumatic, normocephalic. EYES: Pupils equal round and reactive to light, extraocular movements intact, conjunctiva are normal. ENT: Nares patent, oropharynx clear without exudates. Moist mucous membranes. Upper airway wheezing noted NECK: Normal range of motion, supple without lymphadenopathy LUNGS: Breath sounds clear to auscultation bilaterally and equal. No wheezes rales or rhonchi. No respiratory distress patient on room air is satting 96% HEART: Regular rate and rhythm without murmurs ABDOMEN: Soft, nontender, nondistended abdomen. No guarding, no rebound. No masses appreciated. Female : deferred Musculoskeletal: Normal range of motion, no pitting or edema. No cyanosis. NEUROLOGICAL: Cranial nerves grossly intact. Normal speech, normal gait. Normal sensory, motor exams PSYCH: Anxious SKIN: Warm, Dry, normal turgor, no rashes or lesions noted. Dictation was performed using [employer] voice recognition software Physical Exam - Vital signs Vitals: Temp Pulse Resp BP Pulse Ox 98.9 F 73 28 H 146/38 H 95 01/15/17 10:15 01/15/17 10:15 01/15/17 10:15 01/15/17 10:15 01/15/17 10:15 Course - Re-evaluation Re-evalutation: 01/15/17 10:49 On my physical examination it appears to be more of a forced upper airway wheezing rather than the respiratory issue. Patient appears to be in no distress, she did have an elevated lactic acid yesterday 01/15/17 10:50 I believe the patient's symptoms are more secondary to her uncontrolled sleep apnea. Lab work imaging is pending at this time 01/15/17 11:55 It appears patient is having an an STEMI which I believe is secondary to her uncontrolled sleep apnea causing heart strain Aspirin heparin ordered 01/15/17 12:11 held aspirin heparin due to GI bleed pt refusing , transfusion ordered 01/15/17 12:[address] Davalos hospitalist , he requests cardio consulted 01/15/17 13:16 Dr Davalos accept patient for transfer - Vital Signs Vital signs: Temp Pulse Resp BP Pulse Ox 98.9 F 68 20 162/59 H 100 01/15/17 10:15 01/15/17 10:15 01/15/17 12:34 01/15/17 12:31 01/15/17 12:31 - Laboratory Result Diagrams: 01/15/17 10:55 01/15/17 10:55 Laboratory results interpreted by me: 01/15/17 01/15/17 01/15/17 10:55 10:55 10:55 RBC 2.48 L Hgb 6.7 L Hct 21.1 L MCHC 31.9 L RDW 17.6 H Plt Count 64 L Seg Neutrophils % 85.2 H Lymphocytes % 8.1 L Absolute Lymphocytes 0.3 L PT APTT Sodium 136.3 L Potassium 5.2 H BUN 26 H Est GFR (Non-Af Amer) 56 L Glucose 129 H Lactic Acid Creatine Kinase 182 H CK-MB (CK-2) 6.41 H NT-Pro-B Natriuret Pep 1870 H Crossmatch 01/15/17 01/15/17 01/15/17 10:55 10:55 12:14 RBC Hgb Hct MCHC RDW Plt Count Seg Neutrophils % Lymphocytes % Absolute Lymphocytes PT 15.6 H APTT 38.2 H Sodium Potassium BUN Est GFR (Non-Af Amer) Glucose Lactic Acid 2.2 H Creatine Kinase CK-MB (CK-2) NT-Pro-B Natriuret Pep Crossmatch See Detail - Diagnostic Test Radiology reviewed: Image reviewed, Reports reviewed Critical Care Note - Critical Care Note Total time excluding time spent on procedures (mins): 34 Comments: 34 minutes of critical care time spent in direct contact evaluating and reevaluating the patient, treating symptoms, reviewing labs and studies and speaking with family and consultants excluding any procedures Discharge - Discharge Clinical Impression: NSTEMI (non-ST elevated myocardial infarction) Anemia Qualifiers: Anemia type: unspecified type Qualified Code(s): D64.9 - Anemia, unspecified GI bleed Qualifiers: GI bleed type/associated pathology: unspecified gastrointestinal hemorrhage type Qualified Code(s): K92.2 - Gastrointestinal hemorrhage, unspecified Condition: Stable Disposition: [facility] Referrals: SUZAN SIU PA-C [Primary Care Provider] - Follow up as needed
[2017-01-15 11:37] LABS: ALANINE AMINOTRANSFERASE 29 U/L (9-52); ALBUMIN 3.7 g/dL (3.5-5.0); ALKALINE PHOSPHATASE 96 U/L (38-126); ANION GAP 9 (5-19); ASPARTATE AMINO TRANSFERASE 35 U/L (14-36); BILIRUBIN,DIRECT 0.3 mg/dL (0.0-0.4); BLOOD UREA NITROGEN 26 mg/dL (7-20); CALCIUM 8.7 mg/dL (8.4-10.2); CARBON DIOXIDE 25 mmol/L (22-30); CHLORIDE 102 mmol/L (98-107); CREATINE KINASE 182 U/L (30-135); CREATININE RESULT 1.02 mg/dL (0.52-1.25); GLUCOSE 129 mg/dL (75-110); POTASSIUM 5.2 mmol/L (3.6-5.0); SODIUM 136.3 mmol/L (137-145); TOTAL PROTEIN 6.5 g/dL (6.3-8.2)
[2017-01-15 11:39] LABS: VENOUS BLOOD BASE EXCESS 1.9 mmol/L; VENOUS BLOOD HCO3 27.1 mmol/L (20-32); VENOUS BLOOD PCO2 45.5 mmHg (35-63); VENOUS BLOOD PH 7.39 (7.30-7.42)
[2017-01-15 11:42] LABS: ABSOLUTE LYMPHOCYTES (AUTO) 0.3 10^3/uL (0.5-4.7); ABSOLUTE MONOCYTES (AUTO) 0.3 10^3/uL (0.1-1.4); ABSOLUTE NEUT (AUTO) 3.6 10^3/uL (1.7-8.2); BASOPHILS % (AUTO) 0.2 % (0-2); HEMATOCRIT 21.1 % (36.0-47.0); LYMPHOCYTES % (AUTO) 8.1 % (13-45); MEAN CORPUSCULAR HEMOGLOBIN 27.2 pg (27.0-33.4); MEAN CORPUSCULAR HGB CONC 31.9 g/dL (32.0-36.0); MEAN CORPUSCULAR VOLUME 85 fl (80-97); MONOCYTES % (AUTO) 6.5 % (3-13); RED BLOOD COUNT 2.48 10^6/uL (3.72-5.28); RED CELL DISTRIBUTION WIDTH 17.6 % (11.5-14.0); SEGMENTED NEUTROPHILS % (AUTO) 85.2 % (42-78); WHITE BLOOD COUNT 4.3 10^3/uL (4.0-10.5)
[2017-01-15] MEDS ORDERED: IPRATROPIUM/ALBUTEROL 0.5-2.5 MG/3 ML AMPUL NEB ONE (11:48)
[2017-01-15 11:49] LABS: CREATINE KINASE MB 6.41 ng/mL (<4.55)
[2017-01-15 11:52] LABS: TROPONIN I 1.02 ng/mL
[2017-01-15] MEDS ORDERED: ASPIRIN 325 MG TABLET PO ONE (11:53)
[2017-01-15] MEDS ORDERED: HEPARIN SOD (PORCINE) 1,000 UNIT/ML 10 ML VIAL IV PRN (11:56)
[2017-01-15] MEDS ORDERED: HEPARIN SOD (PORCINE) 1,000 UNIT/ML 10 ML VIAL IV ONE (11:56)
[2017-01-15] MEDS ORDERED: HEPARIN SODIUM,PORCINE/D5W 250 ML IV PRN (11:56)
[2017-01-15 12:03] LABS: HEMOGLOBIN 6.7 g/dL (12.0-15.5)
[2017-01-15] MEDS ORDERED: NORMAL SALINE 250 ML IV PRN ×2 (12:09)
[2017-01-15 12:13] LABS: PROTHROMBIN TIME 15.6 SEC (11.4-15.4)
[2017-01-15 12:14] LABS: PARTIAL THROMBOPLASTIN TIME 38.2 SEC (23.5-35.8)
--- NOTE | 2017-01-15 13:05 | RADIOLOGY REPORT (SQ) ---
EXAM DESCRIPTION: CTA CHEST COMPLETED DATE/TIME: 01/15/2017 11:51 am REASON FOR STUDY: sob COMPARISON: Chest films 01/14/2017 Lumbar spine films 04/27/2015 TECHNIQUE: CT scan of the chest performed using helical scanning technique with dynamic intravenous contrast injection. Images reviewed with lung, soft tissue and bone windows. Reconstructed coronal and sagittal MPR images reviewed. Additional 3 dimensional post-processing performed to develop Maximal Intensity Projection images ([place] P). All images stored on PACS. All CT scanners at this facility use dose modulation, iterative reconstruction, and/or weight based d osing when appropriate to reduce radiation dose to as low as reasonably achievable (ALARA). [facility]: Dose Right [facility]: CareDose [facility]: Dose Right [facility]: Teradose 4D [facility]: [employer] CONTRAST TYPE AND DOSE: contrast/concentration: Isovue 370.00 mg/ml; Total Contrast Delivered: 86.0 ml; Total Saline Delivered: 80.0 ml RENAL FUNCTION: Creatinine 0.94 RADIATION DOSE: Up-to-date CT equipment and radiation dose reduction techniques were employed. CTDIv ol: 3.3 - 66.1 mGy. DLP: 1519 mGy-cm. . LIMITATIONS: Obese patient, limited visualization of the distal right and left lower lobe pulmonary artery branches. Limitations of this test were discussed with Dr. Brady FINDINGS: LUNGS AND PLEURA: Trace right pleural effusion with minimal right basilar atelectasis. No acute infiltrates worrisome for pneumonia or pulmonary edema. No worrisome pulmonary nodules. No pneumothorax. AORTA AND GREAT VESSELS: No aneurysm or dissection. HEART: No pericardial effusion. Mild cardiomegaly. Post sternotomy with CABG. PULMONARY ARTERIES: No emboli visualized in the main pulmonary arteries or the segmental branches. E nlarged main pulmonary artery, question pulmonary hypertension HILAR AND MEDIASTINAL STRUCTURES: No identified masses or abnormal nodes. HARDWARE: None in the chest. UPPER ABDOMEN: Nodular small liver with splenomegaly. Pulse post cholecystectomy. Chronic appearing L1 50% compression deformity. THYROID AND OTHER SOFT TISSUES: No masses. No adenopathy. BONES: Chronic L1 50% compression deformity 3D MIPS: Confirm above findings. OTHER: No other significant finding. IMPRESSION: No acute infiltrates. No gross CT angio evidence of acute pulmonary emboli. No thoracic aortic dissection Prominent central pulmonary arteries, worrisome for pulmonary hypertension. TECHNICAL DOCUMENTATION: JOB ID: [id number] Quality ID # [id number]: Final reports with documentation of one or more dose reduction techniques (e.g., Au tomated exposure control, adjustment of the mA and/or kV according to patient size, use of iterative reconstruction technique) 2010 [employer]- All Rights Reserved
[2017-01-15 13:45] LABS: APPEARANCE,URINE SLIGHTLY-CLOUDY; BILIRUBIN,URINE NEGATIVE (NEGATIVE); GLUCOSE, URINE NEGATIVE (NEGATIVE); KETONES,URINE NEGATIVE (NEGATIVE); LEUKOCYTE ESTERASE,URINE NEGATIVE (NEGATIVE); NITRITE,URINE NEGATIVE (NEGATIVE); PROTEIN,URINE >=500 mg/dL (NEGATIVE); URINE SPECIFIC GRAVITY 1.041
--- NOTE | 2017-01-15 16:39 | EKG REPORT ---
SEVERITY:- ABNORMAL ECG - SINUS RHYTHM NONSPECIFIC INTRAVENTRICULAR CONDUCTION DELAY NONSPECIFIC ST-T CHANGES LATERAL LEADS : Confirmed by: Reagan Chavarria MD 15-Jan-2017 16:39:08
[2017-01-15 16:49] VITALS: BP 142/103
== END 2017-01-15 17:01 | disposition short-term general hospital (02) ==
LOC: ER 10:09
DX: I21.4 Non-ST elevation (NSTEMI) myocardial infarction (principal); D64.9 Anemia, unspecified; K92.2 Gastrointestinal hemorrhage, unspecified; R06.02 Shortness of breath
CPT/HCPCS: 93005; 94640 ×2; 99291; 96374; 86900; 86901; 36415; 87040; 82553; 36430; 86850; 82550; 85025; 85610; 85730; 82272; 80053; 81001; 84484; 86920; 82803; 83605; 83880; 71275; 93010; P9016; A9270 ×2; J2060; J7620

== ENCOUNTER 2017-02-17 08:55 | Outpatient (CLI) | payer MEDICARE ==
[~2017-02-17 08:55] MED LIST: FERRIC CARBOXYMALTOSE 750 MG in NORMAL SALINE 250 ML IV PRN; NORMAL SALINE 250 ML IV PRN
[2017-02-17 09:32] VITALS: BP 143/73
== END 2017-02-17 10:14 | disposition home or self-care (01) ==
LOC: II 08:55 → 5TH 08:58 → II 10:14
PROVIDERS: ATTEND Internal Medicine
PROC: 3E033GC Introduction of Other Therapeutic Substance into Peripheral Vein, Percutaneous Approach (ICD-10-PCS; principal; 2017-02-17)
DX: D50.9 Iron deficiency anemia, unspecified (principal); K90.9 Intestinal malabsorption, unspecified
CPT/HCPCS: 96365; J7050; J1439; 96367

== ENCOUNTER 2017-02-22 08:24 | Day surgery (SDC) | payer MEDICARE ==
[2017-02-22 09:15] LABS: HEMATOCRIT 31.2 % (36.0-47.0); HEMOGLOBIN 10.2 g/dL (12.0-15.5); HGB HCT DIFFERENCE -0.6; MEAN CORPUSCULAR HEMOGLOBIN 28.9 pg (27.0-33.4); MEAN CORPUSCULAR HGB CONC 32.9 g/dL (32.0-36.0); MEAN CORPUSCULAR VOLUME 88 fl (80-97); RED BLOOD COUNT 3.54 10^6/uL (3.72-5.28); RED CELL DISTRIBUTION WIDTH 21.3 % (11.5-14.0); WHITE BLOOD COUNT 3.2 10^3/uL (4.0-10.5)
[2017-02-22 09:22] LABS: BLOOD UREA NITROGEN 8 mg/dL (7-20)
[2017-02-22 10:31] LABS: PROTHROMBIN TIME 15.6 SEC (11.4-15.4)
[2017-02-22 10:40] LABS: PARTIAL THROMBOPLASTIN TIME 34.9 SEC (23.5-35.8)
[2017-02-22] MEDS ORDERED: MIDAZOLAM 2 MG/2 ML INJ ONE (11:25)
[2017-02-22] MEDS ORDERED: FENTANYL CITRATE INJ/PF 100 MCG/2 ML AMPUL ONE ×2 (11:25→12:51)
[2017-02-22] MEDS ORDERED: OXYCODONE-ACETAMINOPHEN 5-325 MG TABLET ONE (13:36)
--- NOTE | 2017-02-22 15:23 | RADIOLOGY REPORT (SQ) ---
EXAM DESCRIPTION: CT BIOPSY BONE DEEP; CT NEEDLE PLACEMENT COMPLETED DATE/TIME: 02/22/2017 12:58 pm; 02/22/2017 12:57 pm REASON FOR STUDY: THROMBOCYTOPENIA; THROMBOCYTOPENIA, BONE BX D69.6 THROMBOCYTOPENIA, UNSPECIFIED D 72.819 DECREASED WHITE BLOOD CELL COUNT, UNSPECIFIED D50.9 IRON DEFICIENCY ANEMIA, UNSPECIFIED COMPARISON: None. TECHNIQUE: CT guided biopsy of the right posterior iliac crest performed with conscious sedation. CT Fluoroscopy Time: 4.[address] scanners at this facility use dose modulation, iterative reconstruction, and/or weight based d osing when appropriate to reduce radiation dose to as low as reasonably achievable (ALARA). [facility]: Dose Right [facility]: CareDose [facility]: Dose Right [facility]: Teradose 4D [facility]: [employer] RADIATION DOSE: mGy. FINDINGS: The procedure was discussed with the patient and the patient agreed to the procedure. Prio r to the procedure, a time out was performed to verify the patient's identity and planned procedure. IV sedation was administered and physician direction by the registered nurse using 1 milligrams of Ve rsed and 125 micrograms of fentanyl. Physiologic monitoring was provided before, during, and after se dation. The total sedation time was 44 minutes. Documentation face to face time, the performing proceduralist, spent monitoring the patient: [address] scanning was performed to localize the percutaneous site for the biopsy approach. After sterile skin prep and local lidocaine for skin and deep tissue anesthesia, a 14 gauge bone biop sy needle was used to obtain a bone marrow aspirate from the right posterior iliac crest, and a core biopsy of the trabecular bone in the marrow space. Specimens were received by Dr. Gardner's nurse. There were no immediate complications. Pathology is pending at the time of dictation. IMPRESSION: CT GUIDED BIOPSY OF THE RIGHT POSTERIOR ILIAC CREST BONE MARROW PERFORMED WITHOUT IMMEDI ATE COMPLICATION. PATHOLOGY PENDING. IV CONSCIOUS SEDATION COMMENT: Quality ID 145: Final reports for procedures using fluoroscopy that document radiation exp osure indices, or exposure time and number of fluorographic images (if radiation exposure indices are not available) Patient medication list reviewed: Yes- Quality ID# [id number]:Eligible professional attests to documenting i n the medical record they obtained, updated, or reviewed the patient's current medications.. TECHNICAL DOCUMENTATION: JOB ID: [id number] Quality ID# [id number]: Final reports with documentation of one or more dose reduction techniques (e.g., Aut omated exposure control, adjustment of the mA and/or kV according to patient size, use of iterative r econstruction technique) 2010 [employer]- All Rights Reserved
[2017-02-22 15:25] VITALS: BP 126/47
== END 2017-02-22 15:00 | disposition home or self-care (01) ==
LOC: RAD 08:24
PROVIDERS: ATTEND Internal Medicine
DX: D69.6 Thrombocytopenia, unspecified (principal); D72.819 Decreased white blood cell count, unspecified; D50.9 Iron deficiency anemia, unspecified; N18.9 Chronic kidney disease, unspecified
CPT/HCPCS: 36415; 84520; 82565; 85027; 85610; 85730; 77012; 20225; J2250; J3010; A9270

== ENCOUNTER 2017-02-24 08:43 | Outpatient (CLI) | payer MEDICARE ==
[2017-02-24 10:18] VITALS: BP 136/50
== END 2017-02-24 12:05 | disposition home or self-care (01) ==
LOC: II 08:43 → 5TH 08:44 → II 12:05
PROVIDERS: ATTEND Internal Medicine
PROC: 3E033GC Introduction of Other Therapeutic Substance into Peripheral Vein, Percutaneous Approach (ICD-10-PCS; principal; 2017-02-24)
DX: D50.9 Iron deficiency anemia, unspecified (principal); K90.9 Intestinal malabsorption, unspecified
CPT/HCPCS: 96365; J7050; J1439

== ENCOUNTER 2017-06-10 23:22 | Emergency (ER) | payer MEDICARE ==
[2017-06-10] MEDS ORDERED: DILTIAZEM HCL/D5W 0 MG/0 ML RTUINJ IV ONE (23:27)
[2017-06-10] MEDS ORDERED: DILTIAZEM HCL/D5W 125 MG/125 ML RTUINJ IV PRN (23:27)
[2017-06-10] MEDS ORDERED: NORMAL SALINE 1000 ML 1,000 ML IV PRN (23:28)
--- NOTE | 2017-06-10 23:43 | ER Document Report ---
ED Cardiac - General Chief Complaint: Chest Pain Stated Complaint: FAST HEART RATE Time Seen by Provider: 06/10/17 23:24 Notes: The patient is a 56-year-old female, past medical history CAD with CABG and stents, hypertension, bipolar, arthritis, presents after she began to have chest tightness at 2230 at rest earlier tonight. When EMS arrived, her heart rate was 224 and it was a narrow complex rhythm. Patient was given 6 mg, 12 mg and 12 mg of adenosine with a brief improvement in her heart rate, but her heart rate returned back to the 200's. She was then given 25 mg diltiazem and her SVT stopped. She said that she felt her chest pain completely resolved after her SVT resolved. On arrival to the ER, she is having no chest pain and her HR is 124. She says that she does not have a history of A. fib or SVT and she is not on blood thinners. She took a full dose of aspirin earlier today. She denies shortness of breath, leg swelling, hemoptysis, nausea, vomiting, syncope, fevers, headache, rash, cough, abdominal pain or radiation of pain. TRAVEL OUTSIDE OF THE [place] IN LAST 30 DAYS: No - Related Data Allergies/Adverse Reactions: No Known Allergies Allergy (Verified 10/28/16 09:29) Past Medical History - General Information source: Patient - Social History Smoking Status: Unknown if Ever Smoked Family History: Reviewed & Not Pertinent, Other - copd - Past Medical History Cardiac Medical History: Reports: Hx Congestive Heart Failure, Hx Coronary Artery Disease, Hx Hypertension Denies: Hx Heart Attack Pulmonary Medical History: Denies: Hx Asthma, Hx Bronchitis, Hx COPD, Hx Pneumonia Neurological Medical History: Denies: Hx Cerebrovascular Accident, Hx Seizures Renal/ Medical History: Denies: Hx Peritoneal Dialysis Musculoskeltal Medical History: Reports Hx Arthritis - LEFT SHOULDER Psychiatric Medical History: Reports: Hx Bipolar Disorder, Hx Depression Past Surgical History: Reports: Hx Appendectomy, Hx Cardiac Surgery - CABG x 2, stents, Hx Section, Hx Cholecystectomy, Hx Tubal Ligation - Immunizations Hx Diphtheria, Pertussis, Tetanus Vaccination: Yes Review of Systems - Review of Systems Notes: REVIEW OF SYSTEMS: CONSTITUTIONAL: -fevers, -chills EENT: -eye pain, -difficulty swallowing, -nasal congestion CARDIOVASCULAR: +chest pain, +palpitations, -syncope. RESPIRATORY: -cough, -SOB GASTROINTESTINAL: -abdominal pain, - nausea, -vomiting, -diarrhea GENITOURINARY: -dysuria, -hematuria MUSCULOSKELETAL: -back pain, -neck pain SKIN: -rash or skin lesions. HEMATOLOGIC: -easy bruising or bleeding. LYMPHATIC: -swollen, enlarged glands. NEUROLOGICAL: -altered mental status or loss of consciousness, -headache, - neurologic symptoms PSYCHIATRIC: -anxiety, -depression. ALL OTHER SYSTEMS REVIEWED AND NEGATIVE. Physical Exam - Vital signs Vitals: Resp 20 06/10/17 23:26 - Notes Notes: PHYSICAL EXAMINATION: GENERAL: Well-appearing, well-nourished and in no acute distress. HEAD: Atraumatic, normocephalic. EYES: Pupils equal round and reactive to light, extraocular movements intact, sclera anicteric, conjunctiva are normal. ENT: nares patent, oropharynx clear without exudates. Moist mucous membranes. NECK: Normal range of motion, supple without lymphadenopathy LUNGS: Breath sounds clear to auscultation bilaterally and equal. No wheezes rales or rhonchi. HEART: Tachycardia, regular rhythm ABDOMEN: Soft, nontender, normoactive bowel sounds. No guarding, no rebound. No masses appreciated. EXTREMITIES: Normal range of motion, no pitting or edema. No cyanosis. NEUROLOGICAL: Cranial nerves grossly intact. Normal speech, normal gait. Normal sensory and motor exams. PSYCH: Normal mood, normal affect. SKIN: Warm, Dry, normal turgor, no rashes or lesions noted. Course - Re-evaluation Re-evalutation: Patient with 1 hour chest pain. She was found to be in SVT at a rate of 240 by EMS. She was given 3 doses of adenosine and 25 mg of diltiazem with conversion of her SVT prior to arrival to the ED. She was in sinus tachycardia when she arrived to the ER and she was provided a dose of metoprolol. Chest x-ray is unremarkable and blood work is remarkable for a troponin level of 0.58. Her EKG shows a sinus tachycardia with ST depressions in the inferior leads. Pt has multiple comorbidities, hypertension, prior CAD with CABG and stents. Her last heart cath was 5 years ago, according to her. Patient already took 325 mg aspirin earlier today and will provide her with a dose of Lovenox for a NSTEMI. Spoke to Dr. Orellana (Hospitalist) and she recommends transfer to center with Interventional Cardiology for a possible cath. [facility] and is requesting transfer there. 06/11/17 01:05 Placed call to [facility] and awaiting callback. 06/11/17 01:[address] Donnie Valderrama and he has accepted patient. Pt remains chest pain free. 06/11/17 03:05 Transport in ED. Patient reevaluated and stable for transport at this time. - Vital Signs Vital signs: Temp Pulse Resp BP Pulse Ox 98.2 F 120 H 20 116/70 95 06/10/17 23:56 06/11/17 01:20 06/11/17 02:01 06/11/17 02:01 06/11/17 02:01 - Laboratory Result Diagrams: 06/10/17 23:35 06/10/17 23:35 Laboratory results interpreted by me: 06/10/17 06/10/17 06/10/17 23:35 23:35 23:35 WBC 3.6 L RDW 14.6 H Plt Count 73 L PT 16.0 H APTT 37.7 H Glucose 137 H Total Bilirubin 1.6 H Direct Bilirubin 0.5 H AST 48 H - Diagnostic Test Radiology reviewed: Image reviewed, Reports reviewed Radiology results interpreted by me: CXR: NAD - EKG Interpretation by Me EKG shows normal: Sinus rhythm, Rodeo, Intervals, QRS Complexes Rate: Tachycardia Additional EKG results interpreted by me: ST Depression in inferior leads Critical Care Note - Critical Care Note Total time excluding time spent on procedures (mins): 35 Discharge - Discharge Clinical Impression: NSTEMI (non-ST elevated myocardial infarction), SVT (supraventricular tachycardia) Chest pain Qualifiers: Chest pain type: unspecified Qualified Code(s): R07.9 - Chest pain, unspecified Condition: Stable [facility] Referrals: SUZAN SIU PA-C [Primary Care Provider] - Follow up as needed
[2017-06-10] MEDS ORDERED: NORMAL SALINE 1000 ML 1,000 ML IV ONE (23:44)
[2017-06-10 23:50] LABS: ABSOLUTE EOSINOPHILS # (AUTO) 0.1 10^3/uL (0.0-0.6); ABSOLUTE LYMPHOCYTES (AUTO) 0.6 10^3/uL (0.5-4.7); ABSOLUTE MONOCYTES (AUTO) 0.3 10^3/uL (0.1-1.4); ABSOLUTE NEUT (AUTO) 2.7 10^3/uL (1.7-8.2); BASOPHILS % (AUTO) 0.6 % (0-2); EOSINOPHILS % (AUTO) 1.9 % (0-6); HEMOGLOBIN 12.9 g/dL (12.0-15.5); LYMPHOCYTES % (AUTO) 15.5 % (13-45); MEAN CORPUSCULAR HGB CONC 33.9 g/dL (32.0-36.0); MEAN CORPUSCULAR VOLUME 94 fl (80-97); MONOCYTES % (AUTO) 7.5 % (3-13); RED BLOOD COUNT 4.03 10^6/uL (3.72-5.28); RED CELL DISTRIBUTION WIDTH 14.6 % (11.5-14.0); SEGMENTED NEUTROPHILS % (AUTO) 74.5 % (42-78); TOTAL CELLS COUNTED % (AUTO) 100 %; WHITE BLOOD COUNT 3.6 10^3/uL (4.0-10.5)
[2017-06-10 23:58] LABS: ALANINE AMINOTRANSFERASE 34 U/L (9-52); ALBUMIN 3.7 g/dL (3.5-5.0); ALKALINE PHOSPHATASE 107 U/L (38-126); ANION GAP 9 (5-19); ASPARTATE AMINO TRANSFERASE 48 U/L (14-36); BILIRUBIN,DIRECT 0.5 mg/dL (0.0-0.4); BILIRUBIN,TOTAL 1.6 mg/dL (0.2-1.3); BLOOD UREA NITROGEN 7 mg/dL (7-20); CARBON DIOXIDE 30 mmol/L (22-30); CHLORIDE 102 mmol/L (98-107); CREATINE KINASE 73 U/L (30-135); GLUCOSE 137 mg/dL (75-110); POTASSIUM 3.6 mmol/L (3.6-5.0); SODIUM 140.9 mmol/L (137-145); TOTAL PROTEIN 6.7 g/dL (6.3-8.2)
--- NOTE | 2017-06-11 | RADIOLOGY REPORT (SQ) ---
EXAM DESCRIPTION: CHEST SINGLE VIEW COMPLETED DATE/TIME: 06/10/2017 11:50 pm REASON FOR STUDY: chest pain COMPARISON: 01/14/2017 EXAM PARAMETERS: NUMBER OF VIEWS: One view. TECHNIQUE: Single frontal radiographic view of the chest acquired. RADIATION DOSE: NA LIMITATIONS: None. FINDINGS: LUNGS AND PLEURA: No acute opacities, masses or pneumothorax. No pleural effusion. MEDIASTINUM AND HILAR STRUCTURES: Stable. HEART AND VASCULAR STRUCTURES: Stable. BONES: No acute findings. HARDWARE: CABG. Surgical clips in the right upper chest wall. OTHER: No other significant finding. IMPRESSION: NO ACUTE RADIOGRAPHIC FINDING IN THE CHEST. TECHNICAL DOCUMENTATION: JOB ID: [id number] [place]-72 2010 [employer]- All Rights Reserved
[2017-06-11 00:03] LABS: PARTIAL THROMBOPLASTIN TIME 37.7 SEC (23.5-35.8)
[2017-06-11 00:08] LABS: PLATELET COUNT 73 10^3/uL (150-450)
[2017-06-11 00:14] LABS: TROPONIN I 0.586 ng/mL
[2017-06-11 00:16] LABS: FREE T3 4.38 pg/mL (2.77-5.27); FREE T4 (FREE THYROXINE) 1.41 ng/dL (0.78-2.19)
[2017-06-11] MEDS ORDERED: METOPROLOL TARTRATE PF/INJ 5 MG/5 ML SDV IV ONE (00:22)
[2017-06-11 00:30] LABS: THYROID STIMULATING HORMONE 2.94 uIU/mL (0.47-4.68)
[2017-06-11] MEDS ORDERED: ENOXAPARIN SODIUM INJ 150 MG/1 ML DISP.SYRIN SUBCUT SCH (01:15)
[2017-06-11 02:20] VITALS: BP 116/70
--- NOTE | 2017-06-11 12:14 | EKG REPORT ---
SEVERITY:- ABNORMAL ECG - JUNCTIONAL TACHYCARDIA ST DEPRESSION, CONSIDER ISCHEMIA, DIFFUSE LDS : Confirmed by: Valentine Orlando MD 11-Jun-2017 12:12:42
== END 2017-06-11 03:50 | disposition short-term general hospital (02) ==
LOC: ER 23:22
DX: I21.4 Non-ST elevation (NSTEMI) myocardial infarction (principal); I47.1 Supraventricular tachycardia; I25.10 Atherosclerotic heart disease of native coronary artery without angina pectoris; I10 Essential (primary) hypertension; Z95.1 Presence of aortocoronary bypass graft; Z98.61 Coronary angioplasty status
CPT/HCPCS: 93005; 99291; 96372; 96361; 96374; 36415; 84439; 82550; 84443; 85025; 85610; 85730; 80053; 84484; 84481; 85379; 83880; 71010; 93010; J3490 ×2; J7030

== ENCOUNTER → 2017-07-13 | Outpatient (CLI) | payer MEDICARE ==
--- NOTE | 2017-07-13 14:26 | RADIOLOGY REPORT (SQ) ---
EXAM DESCRIPTION: CHEST PA/LATERAL COMPLETED DATE/TIME: 07/13/2017 1:52 pm REASON FOR STUDY: COUGH COMPARISON: CT angio chest 04/29/2015, 01/15/2017 Chest films 10/20/2014, 10/28/2016, 01/01/2017, 06/10/2017 EXAM PARAMETERS: NUMBER OF VIEWS: two views TECHNIQUE: Digital Frontal and Lateral radiographic views of the chest acquired. RADIATION DOSE: NA LIMITATIONS: Large patient FINDINGS: LUNGS AND PLEURA: No opacities, masses or pneumothorax. No pleural effusion. MEDIASTINUM AND HILAR STRUCTURES: No masses or contour abnormalities. HEART AND VASCULAR STRUCTURES: Old sternotomy for CABG. Moderate stable cardiomegaly. BONES: Osteopenic. No acute displaced fracture. HARDWARE: Surgical clips over the right upper chest infraclavicular region OTHER: No other significant finding. IMPRESSION: Cardiomegaly and post CABG. TECHNICAL DOCUMENTATION: JOB ID: [id number] [email or web address]- All Rights Reserved
== END ==
LOC: OD 13:43
PROVIDERS: ATTEND Physician Assistant
DX: R05 Cough (principal); I51.7 Cardiomegaly; Z95.1 Presence of aortocoronary bypass graft
CPT/HCPCS: 71046

== ENCOUNTER → 2017-08-17 | Outpatient (CLI) | payer MEDICARE ==
[2017-08-17 10:10] LABS: ABSOLUTE EOSINOPHILS # (AUTO) 0.1 10^3/uL (0.0-0.6); ABSOLUTE LYMPHOCYTES (AUTO) 0.7 10^3/uL (0.5-4.7); ABSOLUTE MONOCYTES (AUTO) 0.3 10^3/uL (0.1-1.4); ABSOLUTE NEUT (AUTO) 2.4 10^3/uL (1.7-8.2); BASOPHILS % (AUTO) 0.8 % (0-2); EOSINOPHILS % (AUTO) 3.6 % (0-6); HEMOGLOBIN 12.3 g/dL (12.0-15.5); LYMPHOCYTES % (AUTO) 19.8 % (13-45); MEAN CORPUSCULAR HEMOGLOBIN 30.4 pg (27.0-33.4); MEAN CORPUSCULAR HGB CONC 34.1 g/dL (32.0-36.0); MEAN CORPUSCULAR VOLUME 89 fl (80-97); MONOCYTES % (AUTO) 7.6 % (3-13); RED BLOOD COUNT 4.05 10^6/uL (3.72-5.28); RED CELL DISTRIBUTION WIDTH 15.9 % (11.5-14.0); SEGMENTED NEUTROPHILS % (AUTO) 68.2 % (42-78); TOTAL CELLS COUNTED % (AUTO) 100 %; WHITE BLOOD COUNT 3.6 10^3/uL (4.0-10.5)
[2017-08-17 10:19] LABS: ALANINE AMINOTRANSFERASE 34 U/L (9-52); ALBUMIN 4.1 g/dL (3.5-5.0); ALKALINE PHOSPHATASE 87 U/L (38-126); ANION GAP 10 (5-19); ASPARTATE AMINO TRANSFERASE 52 U/L (14-36); BILIRUBIN,DIRECT 0.6 mg/dL (0.0-0.4); BILIRUBIN,TOTAL 1.6 mg/dL (0.2-1.3); BLOOD UREA NITROGEN 12 mg/dL (7-20); CALCIUM 9.2 mg/dL (8.4-10.2); CARBON DIOXIDE 30 mmol/L (22-30); CHLORIDE 102 mmol/L (98-107); CHOLESTEROL 166.93 mg/dL (0-200); GLUCOSE 114 mg/dL (75-110); POTASSIUM 4.4 mmol/L (3.6-5.0); SODIUM 141.9 mmol/L (137-145); TOTAL PROTEIN 7.2 g/dL (6.3-8.2); TRIGLYCERIDES 81 mg/dL (<150)
[2017-08-17 10:29] LABS: DIRECT LDL 64 mg/dL (<100)
[2017-08-17 10:38] LABS: PLATELET COUNT 63 10^3/uL (150-450)
== END ==
LOC: OD 08:47
PROVIDERS: ATTEND Psychiatry & Neurology Psychiatry
DX: F31.60 Bipolar disorder, current episode mixed, unspecified (principal); F51.01 Primary insomnia; F60.3 Borderline personality disorder; Z79.899 Other long term (current) drug therapy
CPT/HCPCS: 36415; 80053; 80061; 84443; 85025

== ENCOUNTER 2017-10-21 10:35 | Observation (INO) | payer MEDICARE ==
[2017-10-21] MEDS ORDERED: ASPIRIN 81 MG TABLET, CHEWABLE PO ONE (10:56)
[2017-10-21 11:32] LABS: ABSOLUTE EOSINOPHILS # (AUTO) 0.1 10^3/uL (0.0-0.6); ABSOLUTE LYMPHOCYTES (AUTO) 0.7 10^3/uL (0.5-4.7); ABSOLUTE MONOCYTES (AUTO) 0.2 10^3/uL (0.1-1.4); ABSOLUTE NEUT (AUTO) 2.1 10^3/uL (1.7-8.2); BASOPHILS % (AUTO) 0.5 % (0-2); EOSINOPHILS % (AUTO) 3.4 % (0-6); HEMATOCRIT 37.2 % (36.0-47.0); HEMOGLOBIN 12.5 g/dL (12.0-15.5); LYMPHOCYTES % (AUTO) 22.1 % (13-45); MEAN CORPUSCULAR HEMOGLOBIN 29.3 pg (27.0-33.4); MEAN CORPUSCULAR HGB CONC 33.5 g/dL (32.0-36.0); MEAN CORPUSCULAR VOLUME 87 fl (80-97); MONOCYTES % (AUTO) 7.8 % (3-13); RED BLOOD COUNT 4.26 10^6/uL (3.72-5.28); RED CELL DISTRIBUTION WIDTH 17.6 % (11.5-14.0); SEGMENTED NEUTROPHILS % (AUTO) 66.2 % (42-78); TOTAL CELLS COUNTED % (AUTO) 100 %; WHITE BLOOD COUNT 3.2 10^3/uL (4.0-10.5)
[2017-10-21 11:44] LABS: ALANINE AMINOTRANSFERASE 32 U/L (9-52); ALBUMIN 4.1 g/dL (3.5-5.0); ALKALINE PHOSPHATASE 90 U/L (38-126); ANION GAP 9 (5-19); ASPARTATE AMINO TRANSFERASE 50 U/L (14-36); BILIRUBIN,DIRECT 0.3 mg/dL (0.0-0.4); BILIRUBIN,TOTAL 1.3 mg/dL (0.2-1.3); BLOOD UREA NITROGEN 12 mg/dL (7-20); CALCIUM 9.3 mg/dL (8.4-10.2); CARBON DIOXIDE 33 mmol/L (22-30); CHLORIDE 98 mmol/L (98-107); CREATINE KINASE 50 U/L (30-135); GLUCOSE 120 mg/dL (75-110); POTASSIUM 4.5 mmol/L (3.6-5.0); SODIUM 140.4 mmol/L (137-145); TOTAL PROTEIN 7.3 g/dL (6.3-8.2)
[2017-10-21 11:55] LABS: CREATINE KINASE MB 0.92 ng/mL (<4.55); TROPONIN I < 0.012 ng/mL
[2017-10-21] MEDS ORDERED: MORPHINE SULFATE 10 MG/ML INJ IV ONE (12:02)
--- NOTE | 2017-10-21 12:09 | RADIOLOGY REPORT (SQ) ---
EXAM DESCRIPTION: CHEST SINGLE VIEW COMPLETED DATE/TIME: 10/21/2017 11:53 am REASON FOR STUDY: cp COMPARISON: None. EXAM PARAMETERS: NUMBER OF VIEWS: One view. TECHNIQUE: Single frontal radiographic view of the chest acquired. RADIATION DOSE: NA LIMITATIONS: Poor quality image. FINDINGS: LUNGS AND PLEURA: No opacities, masses or pneumothorax. No pleural effusion. MEDIASTINUM AND HILAR STRUCTURES: No masses. Contour normal. HEART AND VASCULAR STRUCTURES: Moderate cardiomegaly. No evidence failure. BONES: No acute findings. HARDWARE: Status post midline sternotomy. OTHER: No other significant finding. IMPRESSION: Cardiomegaly without evidence of acute cardiopulmonary disease. TECHNICAL DOCUMENTATION: JOB ID: [id number] [employer]- All Rights Reserved Reading location - IP/workstation name: Unknown
[2017-10-21 12:13] LABS: PLATELET COUNT 71 10^3/uL (150-450)
--- NOTE | 2017-10-21 12:25 | ER Document Report ---
ED General - General Chief Complaint: Chest Pain Stated Complaint: CHEST PAIN Time Seen by Provider: 10/21/17 11:20 Mode of Arrival: Ambulatory Information source: Patient, [facility] Records Notes: 57-year-old female history of extensive coronary artery disease as well as multiple stents A. fib presents with complaints of chest pressure sensation. Patient denies any fevers or chills denies any nausea vomiting or diarrhea. Patient notes she had to be cardioverted in June twice and was diagnosed with N STEMI's at that time TRAVEL OUTSIDE OF THE [place] IN LAST 30 DAYS: No - HPI Onset: Just prior to arrival Onset/Duration: Sudden Quality of pain: Achy, Pressure Severity: Mild Pain Level: 1 Context: Patient took one nitroglycerin which lowered her blood pressure Associated symptoms: Chest pain Exacerbated by: Denies Relieved by: Denies Similar symptoms previously: Yes Recently seen / treated by doctor: Yes Notes: Patient noted to have recent heart cath in June which noted no obstructions per patient - Related Data Allergies/Adverse Reactions: No Known Allergies Allergy (Verified 10/21/17 10:36) Home Medications: levothyroxine, ventolin, lamotrigine, duloxetine, symbicort, amiodarone, bisoprolol, diltiazem, potassium, isosorbide, protonix, tramdol, zolpidem, lasix. Past Medical History - Social History Smoking Status: Never Smoker Cigarette use (# per day): No Chew tobacco use (# tins/day): No Smoking Education Provided: No Family History: Reviewed & Not Pertinent, Other - copd - Past Medical History Cardiac Medical History: Reports: Hx Congestive Heart Failure, Hx Coronary Artery Disease, Hx Hypertension Denies: Hx Heart Attack Pulmonary Medical History: Denies: Hx Asthma, Hx Bronchitis, Hx COPD, Hx Pneumonia Neurological Medical History: Denies: Hx Cerebrovascular Accident, Hx Seizures Renal/ Medical History: Denies: Hx Peritoneal Dialysis Musculoskeltal Medical History: Reports Hx Arthritis - LEFT SHOULDER Psychiatric Medical History: Reports: Hx Bipolar Disorder, Hx Depression Past Surgical History: Reports: Hx Appendectomy, Hx Cardiac Surgery - CABG x 2, stents, Hx Section, Hx Cholecystectomy, Hx Tubal Ligation - Immunizations Hx Diphtheria, Pertussis, Tetanus Vaccination: Yes Review of Systems - Review of Systems Notes: REVIEW OF SYSTEMS: CONSTITUTIONAL : Denies fever, chills, or sweats. Denies recent illness. EENT: Denies eye, ear, throat, or mouth pain or symptoms. Denies nasal or sinus congestion or discharge. Denies throat, tongue, or mouth swelling or difficulty swallowing. CARDIOVASCULAR: Admits to chest pain RESPIRATORY: Denies cough, cold, or chest congestion. Denies shortness of breath, difficulty breathing, or wheezing. GASTROINTESTINAL: Denies abdominal pain or distention. Denies nausea, vomiting , or diarrhea. Denies blood in vomitus, stools, or per rectum. Denies black, tarry stools. Denies constipation. GENITOURINARY: Denies difficulty urinating, painful urination, burning, frequency, blood in urine, or discharge. FEMALE GENITOURINARY: Denies vaginal bleeding, heavy or abnormal periods, irregular periods. Denies vaginal discharge or odor. MUSCULOSKELETAL: Denies back or neck pain or stiffness. Denies joint pain or swelling. SKIN: Denies rash, lesions or sores. HEMATOLOGIC : Denies easy bruising or bleeding. LYMPHATIC: Denies swollen, enlarged glands. NEUROLOGICAL: Denies confusion or altered mental status. Denies passing out or loss of consciousness. Denies dizziness or lightheadedness. Denies headache. Denies weakness or paralysis or loss of use of either side. Denies problems with gait or speech. Denies sensory loss, numbness, or tingling. Denies seizures. PSYCHIATRIC: Denies anxiety or stress. Denies depression, suicidal ideation, or homicidal ideation. ALL OTHER SYSTEMS REVIEWED AND NEGATIVE. PHYSICAL EXAMINATION: GENERAL: Well-appearing, well-nourished and in no acute distress. HEAD: Atraumatic, normocephalic. EYES: Pupils equal round and reactive to light, extraocular movements intact, conjunctiva are normal. ENT: Nares patent, oropharynx clear without exudates. Moist mucous membranes. NECK: Normal range of motion, supple without lymphadenopathy LUNGS: Breath sounds clear to auscultation bilaterally and equal. No wheezes rales or rhonchi. HEART: Regular rate and rhythm without murmurs ABDOMEN: Soft, nontender, nondistended abdomen. No guarding, no rebound. No masses appreciated. Female : deferred Musculoskeletal: Normal range of motion, no pitting or edema. No cyanosis. NEUROLOGICAL: Cranial nerves grossly intact. Normal speech, normal gait. Normal sensory, motor exams PSYCH: Normal mood, normal affect. SKIN: Warm, Dry, normal turgor, no rashes or lesions noted. Dictation was performed using [employer] voice recognition software Physical Exam - Vital signs Vitals: Pulse Ox 97 10/21/17 10:56 Course - Re-evaluation Re-evalutation: 10/21/17 15:54 Given extensive history of coronary artery disease previous N STEMI's patient will be admitted for observation purposes for an ACS rule out. Otherwise patient looks well is in no distress at this time is stable well-appearing. Was given morphine for the pain and notes improvement of symptoms - Vital Signs Vital signs: Temp Pulse Resp BP Pulse Ox 12 102/70 99 10/21/17 11:16 10/21/17 11:16 10/21/17 11:16 - Laboratory Result Diagrams: 10/21/17 11:00 10/21/17 11:00 Laboratory results interpreted by me: 10/21/17 10/21/17 11:00 11:00 WBC 3.2 L RDW 17.6 H Plt Count 71 L Carbon Dioxide 33 H Glucose 120 H AST 50 H - Diagnostic Test Radiology reviewed: Image reviewed - Chest x-ray notes no acute abnormality to be, Reports reviewed - EKG Interpretation by Me EKG shows normal: Sinus rhythm, [place], Intervals, QRS Complexes Discharge - Discharge Clinical Impression: Chest pain Qualifiers: Chest pain type: unspecified Qualified Code(s): R07.9 - Chest pain, unspecified CHF (congestive heart failure) Qualifiers: Heart failure type: unspecified Heart failure chronicity: chronic Qualified Code(s): I50.9 - Heart failure, unspecified Coronary atherosclerosis Qualifiers: Coronary Disease-Associated Artery/Lesion type: bypass graft, other Associated angina: with unspecified angina Qualified Code(s): I25.799 - Atherosclerosis of other coronary artery bypass graft(s) with unspecified angina pectoris Condition: Stable Disposition: ADMITTED OBSERVATION Admitting Provider: Hospitalist Unit Admitted: Telemetry
--- NOTE | 2017-10-21 13:41 | EKG REPORT ---
SEVERITY:- ABNORMAL ECG - SINUS RHYTHM NONSPECIFIC INTRAVENTRICULAR CONDUCTION DELAY : Confirmed by: Reagan Chavarria MD 21-Oct-2017 13:40:36
[2017-10-21] MEDS ORDERED: NITROGLYCERIN 0.4 MG/TAB 25 TAB/BOTTLE SL PRN (13:48)
[2017-10-21] MEDS ORDERED: MAG HYDROX/AL HYDROX/SIMETH SUSP 30 ML UDCUP PO PRN (13:48)
[2017-10-21] MEDS ORDERED: ONDANSETRON HCL INJ/PF 4 MG/2 ML SDV IV PRN (13:48)
[2017-10-21] MEDS ORDERED: MORPHINE SULFATE 10 MG/ML INJ IV PRN (13:48)
[2017-10-21] MEDS ORDERED: LORAZEPAM 0.5 MG TABLET PO PRN (13:54)
--- NOTE | 2017-10-21 14:20 | PDOC H&P ---
History of Present Illness Admission Date/PCP: 10/21/17 12:29 Patient complains of: Chest pain History of Present Illness: GUS GRANDE is a 57 year old female with a past medical history of MD status post multiple stents, 3 vessel CABG, recent non-STEMI (June 2017) A. fib with RVR, CHF, hypertension, hypothyroidism, COPD, bipolar disorder, and morbid obesity who presented to the emergency department today with a complaint of sudden onset chest pain while at rest. The pain is described as "elephant on chest" and associated with dizziness and nausea. She did attempt to take 1 dose of nitroglycerin spray which was ineffective. Subsequently she noted that her blood pressure decreased to 110/42 she did not attempt further dosing. She reported to the emergency department where she was provided IV morphine with slight reduction in her discomfort from pain 5/5 to 3/5. Evaluation in the emergency reveals laboratory workup which is essentially normal other than an elevated bicarb of 33, benign chest x-ray, negative troponins, and EKG demonstrating sinus bradycardia with a nonspecific intraventricular conduction delay. She is referred to the hospitalist service for observational admission and chest pain rule out. Past Medical History Cardiac Medical History: Reports: Atrial Fibrillation, Congestive Heart Failure , Coronary Artery Disease, Myocardial Infarction, Hypertension Pulmonary Medical History: Reports: Asthma, Chronic Obstructive Pulmonary Disease (COPD) Denies: Bronchitis, Pneumonia Neurological Medical History: Reports: None Denies: Seizures Endocrine Medical History: Reports: Hypothyroidism Renal/ Medical History: Reports: None Malignancy Medical History: Reports: None GI Medical History: Reports: Gastroesophageal Reflux Disease Musculoskeltal Medical History: Reports: Arthritis - LEFT SHOULDER Psychiatric Medical History: Reports: Bipolar Disorder, Depression, General Anxiety Disorder Denies: Alcohol Dependency, Tobacco Dependency Hematology: Reports: Anemia Infectious Medical History: Reports: None Past Surgical History Past Surgical History: Reports: Appendectomy, Cardiac Catheterization - Multiple stents, Section, Cholecystectomy, Coronary Artery Bypass Graft - Three-vessel, Coronary Stent, Tubal Ligation Social History Information Source: Patient, Relative Lives with: Family Smoking Status: Never Smoker Frequency of Alcohol Use: Rare Hx Recreational Drug Use: No Drugs: None Hx Prescription Drug Abuse: No - Advance Directive Resuscitation Status: Full Code Surrogate healthcare decision maker:: The patient's daughter, Danni Hinojosa, Family History Family History: Arthritis, COPD, Hyperlipidemia, Thyroid Disfunction Parental Family History Reviewed: Yes Children Family History Reviewed: Yes Sibling(s) Family History Reviewed.: Yes Medication/Allergy Home Medications: Aspirin [Aspirin 325 mg Tablet] 325 mg PO DAILY 10/28/16 Cholecalciferol (Vitamin D3) [Vitamin D3 1000 Unit Tablet] 5,000 units PO DAILY 10/28/16 Duloxetine HCl 90 mg PO DAILY 10/28/16 Isosorbide Dinitrate 30 mg PO DAILY 10/28/16 Lamotrigine [Lamictal] 200 mg PO QHS 10/28/16 Loratadine [Claritin 10 mg Tablet] 10 mg PO DAILY 10/28/16 Metoprolol Tartrate [Lopressor 25 mg Tablet] 25 mg PO Q12 10/28/16 Nitroglycerin 1 spray SL PRN PRN 10/28/16 Zolpidem Tartrate [Ambien 5 mg Tablet] 10 mg PO HSP PRN 10/28/16 Allergies/Adverse Reactions: No Known Allergies Allergy (Verified 10/21/17 10:36) Review of Systems Constitutional: ABSENT: chills, fever(s), headache(s), weight gain, weight loss Eyes: ABSENT: visual disturbances Ears: ABSENT: hearing changes Cardiovascular: PRESENT: chest pain. ABSENT: dyspnea on exertion, edema, orthropnea, palpitations Respiratory: ABSENT: cough, hemoptysis Gastrointestinal: PRESENT: nausea. ABSENT: abdominal pain, constipation, diarrhea, hematemesis, hematochezia, vomiting Genitourinary: ABSENT: dysuria, hematuria Musculoskeletal: ABSENT: joint swelling Integumentary: ABSENT: rash, wounds Neurological: ABSENT: abnormal gait, abnormal speech, confusion, dizziness, focal weakness, syncope Psychiatric: ABSENT: anxiety, depression, homidical ideation, suicidal ideation Endocrine: ABSENT: cold intolerance, heat intolerance, polydipsia, polyuria Hematologic/Lymphatic: ABSENT: easy bleeding, easy bruising Physical Exam Vital Signs: Temp Pulse Resp BP Pulse Ox 12 102/70 99 10/21/17 11:16 10/21/17 11:16 10/21/17 11:16 General appearance: PRESENT: no acute distress, cooperative, morbidly obese, well-developed, well-nourished Head exam: PRESENT: atraumatic, normocephalic Eye exam: PRESENT: conjunctiva pink, EOMI, PERRLA. ABSENT: scleral icterus Ear exam: PRESENT: normal external ear exam Mouth exam: PRESENT: moist, tongue midline Neck exam: ABSENT: carotid bruit, JVD, lymphadenopathy, thyromegaly Respiratory exam: PRESENT: clear to auscultation delaney, symmetrical, unlabored. ABSENT: rales, rhonchi, wheezes Cardiovascular exam: PRESENT: bradycardia, +S1, +S2. ABSENT: diastolic murmur, rubs, systolic murmur Pulses: PRESENT: normal dorsalis pedis pul Vascular exam: PRESENT: normal capillary refill GI/Abdominal exam: PRESENT: normal bowel sounds, soft. ABSENT: distended, guarding, mass, organolmegaly - Difficult to assess secondary to body habitus, rebound, tenderness Rectal exam: PRESENT: deferred Extremities exam: PRESENT: full ROM. ABSENT: calf tenderness, clubbing, pedal edema Neurological exam: PRESENT: alert, awake, oriented to person, oriented to place , oriented to time, oriented to situation, CN II-XII grossly intact. ABSENT: motor sensory deficit Psychiatric exam: PRESENT: anxious, appropriate affect, normal mood. ABSENT: homicidal ideation, suicidal ideation Skin exam: PRESENT: dry, intact, warm. ABSENT: cyanosis, rash Results Impressions: Chest X-Ray 10/21/17 10:56 IMPRESSION: Cardiomegaly without evidence of acute cardiopulmonary disease. Assessment & Plan - Diagnosis (1) Chest pain Qualifiers: Chest pain type: unspecified Qualified Code(s): R07.9 - Chest pain, unspecified Is this a current diagnosis for this admission?: Yes Plan: The patient presents with report of substernal chest pain and multiple risk factors. She has a history of previous MIs; non-STEMI June 2017, multiple stents, and three-vessel CABG. Of note, the patient reports that she had a type II non-STEMI in June 2017 secondary to atrial fibrillation with RVR. She reports that she was transferred to [facility] where she did have an echocardiogram completed and reports confirmation of CHF but denies cardiac catheterization. She states her last heart cath was in 2009. Last stress test approximately 3 years ago. Outpatient emergency management program specialist is Dr. Oliveira with [facility]. EKG reveals sinus bradycardia cardia with nonspecific intraventricular conduction delay. Chest x-ray is benign. Initial troponin is negative. The patient will be admitted to the medical floor on continuous cardiac telemetry. We will trend troponins. We will obtain echocardiogram. Schedule nuclear stress testing for the morning. We will further evaluate TSH, lipid, A1c. Nitroglycerin sublingual tabs as needed; IV morphine for unresolved chest pain. Low-dose Ativan as needed for anxiety; 0.25 mg p.o. We will consult cardiology; appreciate their evaluation and assistance. (2) Hypertension Qualifiers: Hypertension type: essential hypertension Qualified Code(s): I10 - Essential (primary) hypertension Is this a current diagnosis for this admission?: Yes Plan: The patient is somewhat hypotensive at present following administration of nitroglycerin and morphine for chest pain. The patient's home medications are continued; amiodarone, bisoprolol, diltiazem , isosorbide, Lasix. Cardiology has been consulted for chest pain; appreciate their recommendations. Will monitor closely and adjust medications as needed. (3) Hypothyroidism Is this a current diagnosis for this admission?: Yes Plan: The patient reports a recent diagnosis of hypothyroidism; she reports that she was started on levothyroxine 75 mcg approximately 2 months ago and her dose was increased approximately 2 weeks ago to 100 mcg. She does not know what her most recent TSH is. We will reevaluate TSH and free T4; if grossly elevated will obtain outpatient laboratory records for correlation. (4) COPD (chronic obstructive pulmonary disease) Is this a current diagnosis for this admission?: Yes Plan: History of COPD; stable and without exacerbation at this time. We will support as necessary. (5) Atrial fibrillation Qualifiers: Atrial fibrillation type: paroxysmal Qualified Code(s): I48.0 - Paroxysmal atrial fibrillation Is this a current diagnosis for this admission?: Yes Plan: Patient endorses a history of atrial fibrillation with RVR. She was placed on amiodarone, bisoprolol, and diltiazem in June 2017. She is currently in a sinus rhythm. (6) Coronary atherosclerosis Qualifiers: Coronary Disease-Associated Artery/Lesion type: bypass graft, other Associated angina: with unspecified angina Qualified Code(s): I25.799 - Atherosclerosis of other coronary artery bypass graft(s) with unspecified angina pectoris Is this a current diagnosis for this admission?: Yes Plan: Daily aspirin and statin therapy. Remaining plan as above. (7) CHF (congestive heart failure) Is this a current diagnosis for this admission?: Yes Plan: The patient reports that during her admission at an outside hospital earlier this year she was told that she has CHF. Echocardiogram from 2017 demonstrates mild to moderate diastolic dysfunction with preserved ejection fraction. ProBNP is pending. We will obtain updated echocardiogram. We will continue the patient's home cardiac medications as described above. Cardiology is consulted; appreciate their evaluation recommendations. - Time Time Spent: 50 to 70 Minutes Medications reviewed and adjusted accordingly: Yes Anticipated discharge: Home Within: within 24 hours
[2017-10-21 15:34] LABS: NT PRO BNP 236 pg/mL (5-900)
[2017-10-21 15:36] LABS: TROPONIN I < 0.012 ng/mL
[2017-10-21] MEDS ORDERED: LORAZEPAM INJ 2 MG/1 ML VIAL IV ONE (16:30)
[2017-10-21] MEDS ORDERED: ISOSORBIDE MONONITRATE 30 MG TAB.ER.24H PO SCH (18:00)
--- NOTE | 2017-10-21 18:28 | XCELERA REPORT ---
[address] [address] Transthoracic Echocardiogram Report Name: GUS GRANDE Age: 57 yrs Gender: Female : 1960 Patient Status: Inpatient Patient Location: [address] [place] [address] Study Date: 10/21/2017 03:57 PM Height: 67 in Weight: 283 lb BSA: 2.3 m2 Procedure: A complete two-dimensional transthoracic echocardiogram was performed (2D, M-mode, spectral and color flow Doppler). The study was technically difficult with many images being suboptimal in quality. Reason For Study: chest pain (obs patient) Ordering Physician: MARK MEDRANO Performed By: Bebe Swanson Interpretation Summary The left ventricular ejection fraction is normal. There is mild concentric left ventricular hypertrophy. The left ventricle is grossly normal size. LV diastolic function could not be adequately assessed. Regional wall motion abnormalities cannot be excluded due to limited visualization. The right ventricle is mildly dilated. Right ventricular function cannot be assessed due to poor image quality. The right atrium is mildly dilated. The left atrium is moderately dilated. There is a trace to mild amount of mitral regurgitation There is no mitral valve stenosis. No aortic regurgitation is present. There is no aortic valve stenosis There is a mild to moderate amount of tricuspid regurgitation There is mild pulmonary hypertension by echo Right ventricular systolic pressure is estimated to be elevated at 30- 40mmHg. The aortic root is not well visualized but is probably normal size. The inferior vena cava was not well visualized There is no pericardial effusion. MMode/2D Measurements & Calculations RVDd: 4.0 cm LVIDd: 4.3 cm FS: 37.6 % Ao root diam: 3.2 cm IVSd: 1.1 cm LVIDs: 2.7 cm EDV(Teich): 81.4 ml LVPWd: 1.1 cm ESV(Teich): 26.0 ml Ao root area: 8.0 cm2 EF(Teich): 68.0 % LVOT diam: 2.1 cm LVOT area: 3.5 cm2 Doppler Measurements & Calculations MV E max urbano: MV dec slope: Ao V2 max: LV V1 max P.3 cm/sec 287.3 cm/sec2 164.6 cm/sec 5.8 mmHg MV A max urbano: MV dec time: Ao max PG: LV V1 max: 52.6 cm/sec 0.38 sec 10.8 mmHg 120.8 cm/sec MV E/A: 2.1 JONATHAN(V,D): 2.6 cm2 PA V2 max: TR max urbano: 124.8 cm/sec 278.2 cm/sec PA max P.2 mmHgTR max P.0 mmHg Left Ventricle The left ventricle is grossly normal size. There is mild concentric left ventricular hypertrophy. The left ventricular ejection fraction is normal. LV diastolic function could not be adequately assessed. Regional wall motion abnormalities cannot be excluded due to limited visualization. Right Ventricle The right ventricle is mildly dilated. Right ventricular function cannot be assessed due to poor image quality. Atria The right atrium is mildly dilated. The left atrium is moderately dilated. Interarterial septum not well visualized and not well dopplered. Cannot comment on ASD/PFO presence. Mitral Valve The mitral valve leaflets are sclerotic and show some degree of functional abnormality. There is no mitral valve stenosis. There is a trace to mild amount of mitral regurgitation. Aortic Valve The aortic valve opens well. There is no aortic valve stenosis. No aortic regurgitation is present. Tricuspid Valve The tricuspid valve is not well visualized secondary to technical limitations. There is no tricuspid stenosis. There is a mild to moderate amount of tricuspid regurgitation. There is mild pulmonary hypertension by echo. Right ventricular systolic pressure is estimated to be elevated at 30-40mmHg. Pulmonic Valve The pulmonic valve is not well seen, but is grossly normal. Great Vessels The aortic root is not well visualized but is probably normal size. The inferior vena cava was not well visualized. Effusions There is no pericardial effusion. : MARK MEDRANO > Liz Dailey
[2017-10-21] MEDS ORDERED: LAMOTRIGINE 100 MG TABLET PO SCH (22:00)
[2017-10-21] MEDS ORDERED: (PENDING PHARMACY ID) (Lamotrigine [Lamictal] 200 MG) PO SCH (22:00)
[2017-10-21] MEDS ORDERED: TRAZODONE HCL 50 MG TABLET PO SCH (22:00)
[2017-10-21] MEDS ORDERED: ATORVASTATIN CALCIUM 20 MG TABLET PO SCH (22:00)
[2017-10-21] MEDS ORDERED: ZOLPIDEM TARTRATE 5 MG TABLET PO PRN (22:00)
[2017-10-21] MEDS: METOPROLOL TARTRATE 25 MG TABLET PO SCH (22:10)
[2017-10-21] MEDS ORDERED: DULOXETINE HCL 30 MG CAPSULE.DR PO ONE (22:30)
[2017-10-22 07:10] LABS: ANION GAP 9 (5-19); BLOOD UREA NITROGEN 15 mg/dL (7-20); CARBON DIOXIDE 32 mmol/L (22-30); CHLORIDE 98 mmol/L (98-107); CHOLESTEROL 167.51 mg/dL (0-200); GLUCOSE 130 mg/dL (75-110); POTASSIUM 4.3 mmol/L (3.6-5.0); SODIUM 138.9 mmol/L (137-145); TRIGLYCERIDES 86 mg/dL (<150)
[2017-10-22 07:20] LABS: DIRECT LDL 59 mg/dL (<100)
[2017-10-22 07:25] LABS: FREE T4 (FREE THYROXINE) 1.62 ng/dL (0.78-2.19)
[2017-10-22 07:34] LABS: HEMOGLOBIN 11.5 g/dL (12.0-15.5); MEAN CORPUSCULAR HEMOGLOBIN 29.2 pg (27.0-33.4); MEAN CORPUSCULAR HGB CONC 33.7 g/dL (32.0-36.0); MEAN CORPUSCULAR VOLUME 87 fl (80-97); RED BLOOD COUNT 3.93 10^6/uL (3.72-5.28); WHITE BLOOD COUNT 3.2 10^3/uL (4.0-10.5)
[2017-10-22 07:39] LABS: THYROID STIMULATING HORMONE 3.99 uIU/mL (0.47-4.68)
[2017-10-22 08:01] LABS: PLATELET COUNT 60 10^3/uL (150-450)
[2017-10-22] MEDS ORDERED: LORATADINE 10 MG TABLET PO SCH (10:00)
[2017-10-22] MEDS ORDERED: (PENDING PHARMACY ID) (Isosorbide Dinitrate [Isosorbide Dinitrate] 30 MG) PO SCH (10:00)
[2017-10-22] MEDS ORDERED: DOCUSATE SODIUM 100 MG CAPSULE PO SCH (10:00)
[2017-10-22] MEDS ORDERED: DULOXETINE HCL 30 MG CAPSULE.DR PO SCH ×2 (10:00→22:00)
[2017-10-22] MEDS ORDERED: CHOLECALCIFEROL (D3) 1,000 UNIT TABLET PO SCH (10:00)
[2017-10-22] MEDS ORDERED: ASPIRIN 81 MG TABLET, ENT COATED PO SCH (10:00)
[2017-10-22] MEDS: METOPROLOL TARTRATE 25 MG TABLET PO SCH (10:41)
--- NOTE | 2017-10-22 13:18 | DRAGON STRESS TEST REPORT ---
INTRAVENOUS LEXISCAN CARDIOLITE STRESS TEST USING SINGLE PHOTON EMMISION COMPUTERIZED TOMOGRAPHIC. DATE OF PROCEDURE: October 22, 2017, INDICATION : Chest pain CARDIAC RISK FACTORS: Hypertension, dyslipidemia, known CAD RESTING EKG: Sinus bradycardia. No acute ST-T wave changes are noted. Incomplete right bundle branch block pattern STRESS EKG: No significant ST segment changes noted with LexiScan bolus REASON FOR TERMINATION: Protocol. PROCEDURE REPORT: Baseline heart rate 56 beats per minute with blood pressure of 150/64. Patient had no significant complaints. Patient was bolused with Lexiscan 0.4 mg intravenously followed by saline bolus. Heart rate at 2 minutes post bolus 57 with a blood pressure of 138/52. 3 minutes post bolus heart rate 57 with blood pressure of 137/53. No significant EKG changes were noted. Patient had no significant complaints during the procedure or postprocedure. Patient injected with Aminophyllin 75 mg at 3 minutes or later after Lexiscan bolus. CONCLUSIONS: Normal EKG and hemodynamic response to IV LexiScan. NUCLEAR DATA: At rest the patient was given 15.50 millicuries of technetium 99 sestamibi injected intravenously. As per protocol rest gated SPECT images were obtained. On day of stress test, the patient was given intravenous LexiScan at a dose of 0.4 mg in 5 mL intravenously, followed by flush with normal saline. Subsequently the stress dose of 46.5 millicuries of technetium 99 sestamibi was injected intravenously. As per protocol stress gated images were obtained. NUCLEAR INTERPRETATION: Both raw and processed data were used for interpretation. Visual, qualitative, computer-generated quantitative data was used. There was good myocardial uptake of technetium compound. Motion artifact and soft tissue attenuations were noted. Increased visceral uptake was noted. There was marked increased breast attenuation artifact and also other soft tissue and visceral contamination artifact being noted. Overall confidence in the stress test is not good. No definitive areas of transient perfusion defect noted, No definitive areas of fixed perfusion defect or scars noted. EKG gated imaging showed LV EF at 53 %, rest and stress gated EF similar visually. T. I D. ratio was 1.21. Lung heart ratio noted to be within normal limits 0.32. No significant extracardiac and abnormal radiotracer activities were noted. RV free wall uptake was noted to be WNL. IMPRESSION: Also refer to comments under nuclear interpretation. Also test results needs to be interpreted in the context of pretest probability. 1. No definitive areas of transient perfusion defect noted. Please note that there was significant attenuation artifacts and other artifacts were noted during the study. This lowers overall accuracy and confidence in the study. 2. There is no definitive scintigraphic evidence of myocardial infarction/scar. 3. EKG gated imaging shows left ventricular ejection fraction of approx. 53 %. 4. Clinical correlation requested as occasionally single vessel disease or balanced ischemia could be missed. In approximately 10% of the cases Lexiscan may not cause adequate vasodilatory stress. RECOMMENDATIONS: Aggressive risk factor modification and medical management. Further evaluation may be needed if continued symptoms or other high risk indicators are noted on clinical evaluation. Close cardiology follow-up is also recommended. Clinical correlation with echocardiogram derived ejection fraction. Inability to exercise by itself can lead to increased cardiovascular event risks. Consider cardiology consultation and or follow-up if clinically indicated. I am available for cardiology evaluation and consultation if requested by the pilot highway patrol, unless patient already has a service unit operator oil well. ASHER
[2017-10-22] MEDS ORDERED: AMINOPHYLLINE INJ/PF 250 MG/10 ML SDV IV ONE (14:56)
[2017-10-22] MEDS ORDERED: REGADENOSON INJ 0.4 MG/5 ML DISP.SYRIN IV ONE (14:56)
--- NOTE | 2017-10-22 15:32 | PDOC DISCHARGE SUMMARY ---
General - Admit/Disc Date/PCP Admission Date/Primary Care Provider: 10/21/17 12:29 Discharge Date: 10/22/17 - Discharge Diagnosis (1) Chest pain Is this a current diagnosis for this admission?: Yes Summary: The patient was admitted for report of substernal chest pain and multiple risk factors. EKG revealed sinus bradycardia cardia with nonspecific intraventricular conduction delay. Chest x-ray is benign. Serial troponins negative 4. TSH, lipid panel, and A1c are all appropriate. Echocardiogram revealed a normal left ventricular ejection fraction, mild left ventricular hypertrophy, diastolic dysfunction was not adequately assessed secondary to study quality, right atrium and ventricle are mildly dilated. Trace amount of mitral regurgitation, mild amount of tricuspid regurgitation. Mild pulmonary hypertension. Stress test did not reveal definitive areas of transient perfusion defects, no definitive evidence of myocardial infarction/scar. Please note that study was limited secondary to significant attenuation artifact during the study which lowers the overall accuracy of the study. The patient did not experience any further episodes of chest pain while admitted. At time of discharge, she is in stable condition, pain-free, and maintaining oxygen saturations on room air. She is instructed to resume her home medication regiment. She is also advised to follow-up with her primary care provider within 1 week and to notify her laboratory technical specialist of her admission and follow-up with your office as directed. The patient is encouraged to return to the emergency department for any future episodes of chest pain unresolved by rest and nitroglycerin spray as prescribed. (2) Hypertension Is this a current diagnosis for this admission?: Yes Summary: The patient's blood pressure was adequately controlled with her home medication regimen. (3) Hypothyroidism Is this a current diagnosis for this admission?: Yes Summary: TSH was noted to be 3.99, free T4 1.62. The patient's current Synthroid dose of 100 mcg daily was continued. (4) COPD (chronic obstructive pulmonary disease) Is this a current diagnosis for this admission?: Yes Summary: Stable and without exacerbation. (5) Atrial fibrillation Is this a current diagnosis for this admission?: Yes Summary: The patient maintained a sinus rhythm. Her home medication regimen was continued and remains unchanged at discharge. (6) Coronary atherosclerosis Is this a current diagnosis for this admission?: Yes Summary: Continue daily aspirin therapy. (7) CHF (congestive heart failure) Is this a current diagnosis for this admission?: Yes Summary: Stable and without exacerbation. The patient reports that during her admission at an outside hospital earlier this year she was told that she has CHF. Echocardiogram from 2017 demonstrates mild to moderate diastolic dysfunction with preserved ejection fraction. Repeat echocardiogram from this admission demonstrated normal ejection fraction but was able to fully evaluate diastolic function secondary to artifact. ProBNP 236. - Additional Information Resuscitation Status: Full Code Discharge Diet: Cardiac, Other (Comments) - Low ft, low sodium, low calorie Discharge Activity: Activity As Tolerated, Balance Activity w/Rest Home Medications: Aspirin [Aspirin 325 mg Tablet] 325 mg PO DAILY 10/28/16 Cholecalciferol (Vitamin D3) [Vitamin D3 1000 Unit Tablet] 5,000 units PO DAILY 10/28/16 Duloxetine HCl 90 mg PO DAILY 10/28/16 Isosorbide Dinitrate 30 mg PO DAILY 10/28/16 Lamotrigine [Lamictal] 200 mg PO QHS 10/28/16 Nitroglycerin 1 spray SL PRN PRN 10/28/16 Amiodarone HCl [Cordarone 200 mg Tablet] 200 mg PO BID 10/21/17 Bisoprolol Fumarate [Zebeta 5 mg Tablet] 1 tab PO DAILY 10/21/17 Diltiazem HCl [Diltiazem ER] 120 mg PO BID 10/21/17 Docusate Sodium [Stool Softener] 100 mg PO BID 10/21/17 Furosemide [Lasix 20 mg Tablet] 20 mg PO BID 10/21/17 Levothyroxine Sodium [Synthroid 0.1 mg Tablet] 0.1 mg PO DAILY 10/21/17 Pantoprazole Sodium [Protonix] 40 mg PO DAILY 10/21/17 Potassium Chloride [Klor-Con M20] 20 meq PO DAILY 10/21/17 Tramadol HCl [Ultram 50 mg Tablet] 50 mg PO BID 10/21/17 Trazodone HCl [Desyrel 50 mg Tablet] 50 mg PO QHS 10/21/17 Loratadine [Claritin 10 mg Tablet] 10 mg PO DAILY tablet 10/22/17 Trazodone HCl [Desyrel 50 mg Tablet] 50 mg PO QHS tablet 10/22/17 History of Present Illness History of Present Illness: GUS GRANDE is a 57 year old female with a past medical history of [place] status post multiple stents, 3 vessel CABG, recent non-STEMI (June 2017) A. fib with RVR, CHF, hypertension, hypothyroidism, COPD, bipolar disorder, and morbid obesity who presented to the emergency department today with a complaint of sudden onset chest pain while at rest. The pain is described as "elephant on chest" and associated with dizziness and nausea. She did attempt to take 1 dose of nitroglycerin spray which was ineffective. Subsequently she noted that her blood pressure decreased to 110/42 she did not attempt further dosing. She reported to the emergency department where she was provided IV morphine with slight reduction in her discomfort from pain 5/5 to 3/5. Evaluation in the emergency reveals laboratory workup which is essentially normal other than an elevated bicarb of 33, benign chest x-ray, negative troponins, and EKG demonstrating sinus bradycardia with a nonspecific intraventricular conduction delay. She is referred to the hospitalist service for observational admission and chest pain rule out. Physical Exam Vital Signs: Temp Pulse Resp BP Pulse Ox 97.7 F 54 L 18 140/50 H 92 10/22/17 11:48 10/22/17 11:48 10/22/17 11:48 10/22/17 11:48 10/22/17 11:48 Intake & Output 10/21/17 10/22/17 10/23/17 06:59 06:59 06:59 Intake Total 1305 300 Balance 1305 300 Weight 129 kg 129 kg General appearance: PRESENT: no acute distress, disheveled - poor hygiene, morbidly obese, well-developed, well-nourished Head exam: PRESENT: atraumatic, normocephalic Eye exam: PRESENT: conjunctiva pink, EOMI, PERRLA. ABSENT: scleral icterus Ear exam: PRESENT: normal external ear exam Mouth exam: PRESENT: moist, tongue midline Neck exam: ABSENT: carotid bruit, JVD, lymphadenopathy, thyromegaly Respiratory exam: PRESENT: clear to auscultation delaney, symmetrical, unlabored. ABSENT: rales, rhonchi, wheezes Cardiovascular exam: PRESENT: RRR, +S1, +S2, systolic murmur. ABSENT: diastolic murmur, rubs Pulses: PRESENT: normal dorsalis pedis pul Vascular exam: PRESENT: normal capillary refill GI/Abdominal exam: PRESENT: normal bowel sounds, soft. ABSENT: distended, guarding, mass, organolmegaly - Difficult to assess secondary to body habitus, rebound, tenderness Rectal exam: PRESENT: deferred Extremities exam: PRESENT: full ROM. ABSENT: calf tenderness, clubbing, pedal edema Neurological exam: PRESENT: alert, awake, oriented to person, oriented to place , oriented to time, oriented to situation, CN II-XII grossly intact. ABSENT: motor sensory deficit Psychiatric exam: PRESENT: appropriate affect, normal mood. ABSENT: homicidal ideation, suicidal ideation Skin exam: PRESENT: dry, intact, warm. ABSENT: cyanosis, rash Results Laboratory Results: 10/22/17 06:18 10/22/17 06:18 10/22/17 10/22/17 10/22/17 06:18 06:18 06:18 WBC 3.2 L RBC 3.93 Hgb 11.5 L Hct 34.0 L MCV 87 MCH 29.2 MCHC 33.7 RDW 18.0 H Plt Count 60 L Sodium 138.9 Potassium 4.3 Chloride 98 Carbon Dioxide 32 H Anion Gap 9 BUN 15 Creatinine 0.88 Est GFR ( Amer) > 60 Est GFR (Non-Af Amer) > 60 Glucose 130 H Calcium 9.0 Triglycerides 86 Cholesterol 167.51 LDL Cholesterol Direct 59 VLDL Cholesterol 17.0 HDL Cholesterol 76 TSH 3.99 Free T4 1.62 10/21/17 10/21/17 10/22/17 14:53 20:14 02:13 Troponin I < 0.012 < 0.012 < 0.012 NT-Pro-B Natriuret Pep 236 Impressions: Chest X-Ray 10/21/17 10:56 IMPRESSION: Cardiomegaly without evidence of acute cardiopulmonary disease. Qualifiers - * PATIENT BEING DISCHARGED WITH ANY OF THE FOLLOWING DIAGNOSIS: No Plan Discharge Plan: Discharge to home. Follow up with primary care for follow-up with primary care provider within 1 week. Notify laboratory technical specialist, Dr. Oliveira ([facility]), of admission and follow-up in his office as directed.
--- NOTE | 2017-10-22 16:50 | PDOC CONSULTATION ---
Consultation Consult Date: 10/21/17 Attending physician:: ROBERT DUMONT Consult reason:: Chest pain History of Present Illness Admission Date/PCP: 10/21/17 12:29 Patient complains of: Chest pain History of Present Illness: GUS GRANDE is a 57 year old female with a past medical history of IN status post multiple stents, 3 vessel CABG, recent non-STEMI (June 2017) A. fib with RVR, CHF, hypertension, hypothyroidism, COPD, bipolar disorder, and morbid obesity who presented to the emergency department today with a complaint of sudden onset chest pain while at rest. The pain is described as "elephant on chest" and associated with dizziness and nausea. She did attempt to take 1 dose of nitroglycerin spray which was ineffective. Subsequently she noted that her blood pressure decreased to 110/42 she did not attempt further dosing. She reported to the emergency department where she was provided IV morphine with slight reduction in her discomfort from pain 5/5 to 3/5. Evaluation in the emergency reveals laboratory workup which is essentially normal other than an elevated bicarb of 33, benign chest x-ray, negative troponins, and EKG demonstrating sinus bradycardia with a nonspecific intraventricular conduction delay. She is referred to the hospitalist service for observational admission and chest pain rule out. This history obtained by hospitalist was reviewed and confirmed. Patient does describe 2 separate bypass surgery. Patient claims that first one was just one- vessel and subsequently she underwent a repeat two-vessel bypass surgery. Therefore she claims that she had her chest opened twice. Patient also gives history of multiple stents in the past. Patient also describes history of atrial fibrillation with very rapid ventricular response. Patient describes history of snoring. Patient claims that she has a history of sleep apnea but her last sleep study was negative but she claims that she still has underlying sleep apnea syndrome. Past Medical History Cardiac Medical History: Reports: Atrial Fibrillation, Congestive Heart Failure , Coronary Artery Disease, Hypertension Denies: Myocardial Infarction Pulmonary Medical History: Denies: Asthma, Bronchitis, Chronic Obstructive Pulmonary Disease (COPD), Pneumonia, Tuberculosis Neurological Medical History: Reports: None Denies: Seizures Endocrine Medical History: Reports: Hypothyroidism Renal/ Medical History: Reports: None Denies: End Stage Renal Disease Malignancy Medical History: Reports: None GI Medical History: Denies: Cirrhosis, Gastroesophageal Reflux Disease Musculoskeltal Medical History: Reports: Arthritis - LEFT SHOULDER Psychiatric Medical History: Reports: Bipolar Disorder, Depression, General Anxiety Disorder Denies: Alcohol Dependency, Tobacco Dependency Hematology: Reports: Anemia Denies: Bleeding Tendencies Infectious Medical History: Reports: None Past Surgical History Past Surgical History: Reports: Appendectomy, Cardiac Catheterization - Multiple stents, Section, Cholecystectomy, Coronary Artery Bypass Graft - Three-vessel, Coronary Stent, Tubal Ligation Social History Information Source: Patient Lives with: Family Smoking Status: Never Smoker Frequency of Alcohol Use: Rare Hx Recreational Drug Use: No Drugs: None Hx Prescription Drug Abuse: No - Advance Directive Resuscitation Status: Full Code Family History Family History: Reviewed & Not Pertinent, Other - copd Parental Family History Reviewed: Yes Children Family History Reviewed: Yes Sibling(s) Family History Reviewed.: Yes Medication/Allergy Home Medications: Aspirin [Aspirin 325 mg Tablet] 325 mg PO DAILY 10/28/16 Cholecalciferol (Vitamin D3) [Vitamin D3 1000 Unit Tablet] 5,000 units PO DAILY 10/28/16 Duloxetine HCl 90 mg PO DAILY 10/28/16 Isosorbide Dinitrate 30 mg PO DAILY 10/28/16 Lamotrigine [Lamictal] 200 mg PO QHS 10/28/16 Nitroglycerin 1 spray SL PRN PRN 10/28/16 Amiodarone HCl [Cordarone 200 mg Tablet] 200 mg PO BID 10/21/17 Bisoprolol Fumarate [Zebeta 5 mg Tablet] 1 tab PO DAILY 10/21/17 Diltiazem HCl [Diltiazem ER] 120 mg PO BID 10/21/17 Docusate Sodium [Stool Softener] 100 mg PO BID 10/21/17 Furosemide [Lasix 20 mg Tablet] 20 mg PO BID 10/21/17 Levothyroxine Sodium [Synthroid 0.1 mg Tablet] 0.1 mg PO DAILY 10/21/17 Pantoprazole Sodium [Protonix] 40 mg PO DAILY 10/21/17 Potassium Chloride [Klor-Con M20] 20 meq PO DAILY 10/21/17 Tramadol HCl [Ultram 50 mg Tablet] 50 mg PO BID 10/21/17 Trazodone HCl [Desyrel 50 mg Tablet] 50 mg PO QHS 10/21/17 Loratadine [Claritin 10 mg Tablet] 10 mg PO DAILY tablet 10/22/17 Trazodone HCl [Desyrel 50 mg Tablet] 50 mg PO QHS tablet 05/12/18 Allergies/Adverse Reactions: No Known Allergies Allergy (Verified 10/21/17 10:36) Review of Systems Review of Systems: Please see history of present illness and past medical history as wall. Constitutional: No fever or chills reported. Head : No recent chronic headaches, recent head injury. Eyes: No recent eye pain, diplopia, redness, discharge, acute visual changes. Ears: No recent chronic ear pain, acute hearing loss, ear discharge. Oral cavity: No recent ulcerations, bleeding, oral cavity discomfort. Neck: No recent acute neck pain reported. Hematologic: No recent easy bruising or bleeding. Lymphatic: No recent lymph node enlargement reported. Cardiovascular system review: See history of present illness. Respiratory system review: No hemoptysis or blood clots in the lungs reported. Shortness of breath on exertion Gastrointestinal system review: Negative for any recent acute hematemesis, melena. Genitourinary system review: No recent acute or chronic hematuria, flank pain, UTI etc. reported. Skin system review: Negative for any recent abnormal bruising, no rash, no pruritus reported. Neurologic: No prior history of strokes, mini strokes, seizure disorder. Psychologic: No history of major psychosis or major depression reported. Musculoskeletal: Minor aches and pains reported. No acute joint swelling reported. Endocrine: No recent polyuria, polydipsia, recent heat or cold intolerance. Physical Exam Vital Signs: Temp Pulse Resp BP Pulse Ox 97.7 F 48 L 18 121/50 L 95 10/21/17 16:00 10/21/17 16:00 10/21/17 16:00 10/21/17 16:00 10/21/17 16:00 Exam: GENERAL: well-nourished and in no acute distress. Alert and oriented x3 HEAD: Atraumatic, normocephalic. EYES: Pupils equal round and reactive to light, extraocular movements intact, sclera anicteric, conjunctiva are normal. ENT: TMs normal, nares patent, oropharynx clear without exudates. Moist mucous membranes. No oral ulcerations or bleeding gums noted NECK: supple without lymphadenopathy. Trachea is central. No cervical or axillary lymphadenopathy noted. Carotids are 2+, JVD WNL LUNGS: Respiration seems nonlabored, no significant accessory muscle action noted. Breath sounds clear to auscultation bilaterally and equal noted. No wheezes rales or rhonchi noted. No significant dullness noted on percussion. CHEST: Palpation of the chest wall shows no significant chest wall tenderness. HEART: [place] HOSPITALIST, No PSH, 1/6 JEROME aortic area, 1/6 peterson systolic murmur mitral area, no rubs, no gallops. ABDOMEN: Soft, no significant tenderness appreciated, normoactive bowel sounds. No guarding, no rebound. No rigidity noted . No masses appreciated. EXTREMITIES: Pedal pulses are 1-2+, no calf tenderness noted. No clubbing or cyanosis. Trace to 1+ pedal edema noted NEUROLOGICAL: Focused neurological exam showed no significant neurologic deficit. Normal speech, no focal weakness appreciated. PSYCH: Normal mood, normal affect. Judgment and insight within normal limits. SKIN: No significant ecchymosis, skin is noted to be warm. MUSCULOSKELETAL EXAM: No significant acute joint swelling noted. Results Laboratory Results: 10/21/17 14:53 Troponin I < 0.012 NT-Pro-B Natriuret Pep 236 EKG Comments: Sinus bradycardia with nonspecific IVCD, incomplete RBBB type Impressions: Chest X-Ray 10/21/17 10:56 IMPRESSION: Cardiomegaly without evidence of acute cardiopulmonary disease. Assessment & Plan - Diagnosis (1) Chest pain Qualifiers: Chest pain type: unspecified Qualified Code(s): R07.9 - Chest pain, unspecified Is this a current diagnosis for this admission?: Yes (2) Coronary artery disease Qualifiers: Coronary Disease-Associated Artery/Lesion type: unspecified vessel or lesion type [place] vs. transplanted heart: [place] heart Associated angina: angina presence unspecified Qualified Code(s): I25.10 - Atherosclerotic heart disease of [place] coronary artery without angina pectoris Is this a current diagnosis for this admission?: Yes (3) Obesity Qualifiers: Obesity type: unspecified obesity type Obesity classification: unspecified obesity classification Serious obesity comorbidity presence: unspecified whether serious comorbidity present Qualified Code(s): E66.9 - Obesity, unspecified Is this a current diagnosis for this admission?: Yes (4) Sleep-disordered breathing Is this a current diagnosis for this admission?: Yes (5) Atrial fibrillation Qualifiers: Atrial fibrillation type: paroxysmal Qualified Code(s): I48.0 - Paroxysmal atrial fibrillation Is this a current diagnosis for this admission?: Yes (6) CHF (congestive heart failure) Qualifiers: Heart failure type: unspecified Heart failure chronicity: chronic Qualified Code(s): I50.9 - Heart failure, unspecified Is this a current diagnosis for this admission?: No (7) COPD (chronic obstructive pulmonary disease) Qualifiers: COPD type: unspecified COPD Qualified Code(s): J44.9 - Chronic obstructive pulmonary disease, unspecified Is this a current diagnosis for this admission?: Yes (8) Hypertension Qualifiers: Hypertension type: essential hypertension Qualified Code(s): I10 - Essential (primary) hypertension Is this a current diagnosis for this admission?: Yes - Notes Notes: Chest pain: Patient has some typical and atypical features of chest pain. Cardiac enzymes so far has been negative. Electrocardiogram did not show any definitive ST segment changes. Multiple differential diagnoses exist in this patient. In descending order of probability this includes underlying coronary artery disease, gastroesophageal reflux, musculoskeletal pain, referred pain from elsewhere, anxiety panic disorder etc.Patient has significant cardiac risk factors, which indicates that there is a intermediate probability of chest discomfort coming from underlying CAD. Feel that it would need to be evaluated further. Discussed evaluation to assess this. In this regard risk benefits of nuclear stress test and other alternative processes were discussed in detail. The patient prefers to undergo nuclear stress test. The small risk of radiation , myocardial infarction, , cardiac arrhythmias, respiratory distress etc. were discussed. Patient understood the risks and gave informed consent. Nuclear stress test was therefore scheduled. For risk evaluation, patient is also being scheduled for a 2-D echocardiogram. Patient questions were answered. CAD: Patient status post CABG 2 separate surgeries. High likelihood of underlying progression of [place] vessel and on graft disease. Feel that evaluation with his stress test is indicated. This is therefore being scheduled. Atrial fibrillation: Paroxysmal currently stable. Continue current regimen. Sleep disordered breathing: Discussed association of atrial fibrillation and increased coronary event with untreated sleep apnea. Discussed that she would benefit from being retested for underlying sleep apnea. Obesity: Discussed benefit of weight loss as regards improving her other comorbid diagnosis. COPD: Currently stable. Hypertension: Blood pressure goal is 135/85 in this young lady with CAD. This was discussed. - Time Time Spent: 30 to 50 Minutes - CODE STATUS was discussed, patient remains full code. Surrogate decision-maker unchanged. Multiple medical problems were addressed. More than 50% of the time spent coordinating care, discussing management plans with involved caregivers. Management plans discussed with involved personnels. Medical decision making was of moderate to high complexity , patient's has multiple comorbidities. Medications reviewed and adjusted accordingly: Yes
[2017-10-22 16:53] VITALS: BP 139/51
--- NOTE | 2017-10-22 16:59 | PDOC PROGRESS REPORT ---
Subjective Progress Note for:: 10/22/17 Subjective:: Patient seems to be doing better. No recurrences of chest pain. Pt is denying any chest arm or neck discomfort. Patient denying any PND, orthopnea. Patient denied any sustained palpitations, dizziness, syncope, near syncope. Patient denying any fever chills. Patient denying any other significant discomfort. Patient is maintaining sinus rhythm. Mild sinus bradycardia noted. Review of systems: Rest review of systems negative. Medications: Medications have been reviewed. Reason For Visit: CHEST PAIN Physical Exam Vital Signs: Temp Pulse Resp BP Pulse Ox 97.7 F 58 L 18 139/51 H 92 10/22/17 16:49 10/22/17 16:49 10/22/17 16:49 10/22/17 16:49 10/22/17 16:49 Intake & Output 10/21/17 10/22/17 10/23/17 06:59 06:59 06:59 Intake Total 1305 300 Balance 1305 300 Weight 129 kg 129 kg Exam: GENERAL: well-nourished and in no acute distress. Alert and oriented x3 HEAD: Atraumatic, normocephalic. EYES: Pupils equal round and reactive to light, extraocular movements intact, sclera anicteric, conjunctiva are normal. ENT: TMs normal, nares patent, oropharynx clear without exudates. Moist mucous membranes. No oral ulcerations or bleeding gums noted NECK: supple without lymphadenopathy. Trachea is central. No cervical or axillary lymphadenopathy noted. Carotids are 2+, JVD WNL LUNGS: Respiration seems nonlabored, no significant accessory muscle action noted. Breath sounds clear to auscultation bilaterally and equal noted. No wheezes rales or rhonchi noted. No significant dullness noted on percussion. CHEST: Palpation of the chest wall shows no significant chest wall tenderness. 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 ABDOMEN: Soft, no significant tenderness appreciated, normoactive bowel sounds. No guarding, no rebound. No rigidity noted . No masses appreciated. EXTREMITIES: Pedal pulses are 1-2+, no calf tenderness noted. No clubbing or cyanosis. Trace to 1+ pedal edema noted NEUROLOGICAL: Focused neurological exam showed no significant neurologic deficit. Normal speech, no focal weakness appreciated. PSYCH: Normal mood, normal affect. Judgment and insight within normal limits. SKIN: No significant ecchymosis, skin is noted to be warm. MUSCULOSKELETAL EXAM: No significant acute joint swelling noted. Results Laboratory Results: 10/22/17 06:18 18 06:18 10/22/17 10/22/17 10/22/17 06:18 06:18 06:18 WBC 3.2 L RBC 3.93 Hgb 11.5 L Hct 34.0 L MCV 87 MCH 29.2 MCHC 33.7 RDW 18.0 H Plt Count 60 L Sodium 138.9 Potassium 4.3 Chloride 98 Carbon Dioxide 32 H Anion Gap 9 BUN 15 Creatinine 0.88 Est GFR ( Amer) > 60 Est GFR (Non-Af Amer) > 60 Glucose 130 H Calcium 9.0 Triglycerides 86 Cholesterol 167.51 LDL Cholesterol Direct 59 VLDL Cholesterol 17.0 HDL Cholesterol 76 TSH 3.99 Free T4 1.62 10/21/17 10/21/17 10/22/17 14:53 20:14 02:13 Troponin I < 0.012 < 0.012 < 0.012 NT-Pro-B Natriuret Pep 236 EKG Comments: Mild sinus bradycardia. No sustained tacky or bradycardia arrhythmias noted. Impressions: Chest X-Ray 10/21/17 10:56 IMPRESSION: Cardiomegaly without evidence of acute cardiopulmonary disease. Assessment & Plan - Diagnosis (1) Chest pain Qualifiers: Chest pain type: unspecified Qualified Code(s): R07.9 - Chest pain, unspecified Is this a current diagnosis for this admission?: Yes (2) Coronary artery disease Qualifiers: Coronary Disease-Associated Artery/Lesion type: unspecified vessel or lesion type [place] vs. transplanted heart: [place] heart Associated angina: angina presence unspecified Qualified Code(s): I25.10 - Atherosclerotic heart disease of [place] coronary artery without angina pectoris Is this a current diagnosis for this admission?: Yes (3) Obesity Qualifiers: Obesity type: unspecified obesity type Obesity classification: unspecified obesity classification Serious obesity comorbidity presence: unspecified whether serious comorbidity present Qualified Code(s): E66.9 - Obesity, unspecified Is this a current diagnosis for this admission?: Yes (4) Sleep-disordered breathing Is this a current diagnosis for this admission?: Yes (5) Atrial fibrillation Qualifiers: Atrial fibrillation type: paroxysmal Qualified Code(s): I48.0 - Paroxysmal atrial fibrillation Is this a current diagnosis for this admission?: Yes (6) CHF (congestive heart failure) Qualifiers: Heart failure type: unspecified Heart failure chronicity: chronic Qualified Code(s): I50.9 - Heart failure, unspecified Is this a current diagnosis for this admission?: No (7) COPD (chronic obstructive pulmonary disease) Qualifiers: COPD type: unspecified COPD Qualified Code(s): J44.9 - Chronic obstructive pulmonary disease, unspecified Is this a current diagnosis for this admission?: Yes (8) Hypertension Qualifiers: Hypertension type: essential hypertension Qualified Code(s): I10 - Essential (primary) hypertension Is this a current diagnosis for this admission?: Yes - Notes Notes: Chest pain: Patient claims chest pain is resolved. This was evaluated with a nuclear stress test. Nuclear stress test was negative for any significant areas of ischemia or any significant areas of scar. Patient advised aggressive risk factor modification and medical therapy. Patient informed that further evaluation may become necessary if symptoms worsens or there is a development of new symptoms indicative of angina or angina equivalent symptom. CAD: Patient has CAD. Currently medical management is being advised with aggressive risk factor modification advised. Methods to reduce further cardiovascular events discussed. PAF: Patient has paroxysmal atrial fibrillation. Based on [id number] score chronic anticoagulation is indicated this was explained to the patient. Patient is agreeable. Discussed a small increased risk of bleeding but on the balance benefits far exceeds the risk. Patient felt to be a satisfactory candidate for chronic anticoagulation. CHF: This seems compensated on clinical exam. Continue baseline diuretic therapy. Patient advised salt and fluid restriction. COPD: Currently is stable. Hypertension: Blood pressure goal is 135/85. ELENITA inhibitor/angiotensin receptor blockers and beta blockers are preferred agent. Sleep disordered breathing: Patient told that she might benefit from scheduling a sleep study. Benefits of treatment of sleep apnea with CPAP therapy explained to the patient. - Time Time with patient: Greater than 35 minutes - Patient was seen multiple times. Total time exceeds 40 minutes. In the morning nuclear stress test procedure, risks benefits, alternatives were discussed. Patient seen during the stress test. Patient also seen after stress test when results were discussed with the patient in detail. Patient's questions were answered. Nuclear stress test results were discussed with the patient. Patient was informed that no definitive evidence of pharmacologic stress-induced ischemia noted. No definite fixed defects were noted. Patient informed that sometimes significant disease could be missed. However based on the current study results, would recommend aggressive risk factor modification and medical therapy. It may also be worthwhile to consider evaluation or empiric management of other causes of chest pain. Should no other cause be found and if persistent in having chest pain, then cardiac catheterization should be considered. Right now, recommendations are for aggressive risk factor modification and medical management. Medications reviewed and adjusted accordingly: Yes
[2017-10-22] MEDS ORDERED: (PENDING PHARMACY ID) (Diltiazem Hcl [Diltiazem Er] 120 MG) PO SCH (18:00)
[2017-10-22] MEDS ORDERED: FUROSEMIDE 20 MG TABLET PO SCH (18:00)
[2017-10-22] MEDS ORDERED: TRAMADOL HCL 50 MG TABLET PO SCH (22:00)
[2017-10-22] MEDS ORDERED: DILTIAZEM HCL 120 MG CAP.SR.24H PO SCH (22:00)
[2017-10-22] MEDS ORDERED: AMIODARONE HCL 200 MG TABLET PO SCH (22:00)
[2017-10-23] MEDS ORDERED: LANSOPRAZOLE 30 MG TAB.RAP.DR PO SCH (06:00)
[2017-10-23] MEDS ORDERED: LEVOTHYROXINE SODIUM 0.1 MG TABLET PO SCH (06:00)
[2017-10-23] MEDS ORDERED: POTASSIUM CHLORIDE 10 MEQ TABLET.SA PO SCH (10:00)
[2017-10-23] MEDS ORDERED: (PENDING PHARMACY ID) (Potassium Chloride [Klor-Con M20] 20 MEQ) PO SCH (10:00)
[2017-10-23] MEDS ORDERED: ATENOLOL 50 MG TABLET PO SCH (10:00)
[2017-10-23] MEDS ORDERED: (PENDING PHARMACY ID) (Bisoprolol Fumarate [Zebeta 5 Mg Tablet] 1 TAB) PO SCH (10:00)
== END 2017-10-22 17:12 | disposition home or self-care (01) ==
LOC: ER 10:35 → EH 12:29 → 5 13:53
PROVIDERS: ADMIT Internal Medicine; ATTEND Internal Medicine
DX: R07.2 Precordial pain (principal); I27.20 Pulmonary hypertension, unspecified; I08.1 Rheumatic disorders of both mitral and tricuspid valves; I11.0 Hypertensive heart disease with heart failure; I50.9 Heart failure, unspecified; E03.9 Hypothyroidism, unspecified; J44.9 Chronic obstructive pulmonary disease, unspecified; I48.0 Paroxysmal atrial fibrillation; I25.10 Atherosclerotic heart disease of native coronary artery without angina pectoris; E66.01 Morbid (severe) obesity due to excess calories; R42 Dizziness and giddiness; R11.0 Nausea; I45.19 Other right bundle-branch block; I25.2 Old myocardial infarction; G47.30 Sleep apnea, unspecified; Z95.5 Presence of coronary angioplasty implant and graft; Z68.41 Body mass index [BMI] 40.0-44.9, adult; Z79.899 Other long term (current) drug therapy; Z79.82 Long term (current) use of aspirin; Z95.1 Presence of aortocoronary bypass graft; Z90.49 Acquired absence of other specified parts of digestive tract; Z98.51 Tubal ligation status
CPT/HCPCS: 93005; 99285; 96374; 36415 ×2; 84439; 82553; 82550; 84443; 85025; 85027; 80048; 80053; 84484 ×2; 83036; 80061; 83880; 93306; 93017; 71045; 78452; 93010; A9500; J2785; A9270 ×10; J2270; J2060; J3490 ×2; J0280; Q9969; G0378

== ENCOUNTER 2017-11-04 14:00 | Emergency (ER) | payer MEDICARE ==
--- NOTE | 2017-11-04 14:37 | RADIOLOGY REPORT (SQ) ---
EXAM DESCRIPTION: CHEST SINGLE VIEW COMPLETED DATE/TIME: 11/04/2017 2:28 pm REASON FOR STUDY: chest pain COMPARISON: 10/21/2017 EXAM PARAMETERS: NUMBER OF VIEWS: One view. TECHNIQUE: Single frontal radiographic view of the chest acquired. RADIATION DOSE: NA LIMITATIONS: Body habitus. FINDINGS: LUNGS AND PLEURA: No opacities, masses or pneumothorax. No pleural effusion. MEDIASTINUM AND HILAR STRUCTURES: No masses. Contour normal. HEART AND VASCULAR STRUCTURES: Stable cardiomegaly. BONES: No acute findings. HARDWARE: CABG. OTHER: No other significant finding. IMPRESSION: NO ACUTE RADIOGRAPHIC FINDING IN THE CHEST. TECHNICAL DOCUMENTATION: JOB ID: [id number] [employer]- All Rights Reserved Reading location - IP/workstation name: [email or web address]
[2017-11-04 14:43] LABS: ABSOLUTE EOSINOPHILS # (AUTO) 0.1 10^3/uL (0.0-0.6); ABSOLUTE LYMPHOCYTES (AUTO) 0.5 10^3/uL (0.5-4.7); ABSOLUTE MONOCYTES (AUTO) 0.3 10^3/uL (0.1-1.4); ABSOLUTE NEUT (AUTO) 2.4 10^3/uL (1.7-8.2); BASOPHILS % (AUTO) 0.4 % (0-2); EOSINOPHILS % (AUTO) 1.8 % (0-6); HEMATOCRIT 34.7 % (36.0-47.0); HEMOGLOBIN 11.5 g/dL (12.0-15.5); LYMPHOCYTES % (AUTO) 15.8 % (13-45); MEAN CORPUSCULAR HEMOGLOBIN 29.2 pg (27.0-33.4); MEAN CORPUSCULAR HGB CONC 33.2 g/dL (32.0-36.0); MEAN CORPUSCULAR VOLUME 88 fl (80-97); MONOCYTES % (AUTO) 8.9 % (3-13); RED BLOOD COUNT 3.94 10^6/uL (3.72-5.28); RED CELL DISTRIBUTION WIDTH 17.8 % (11.5-14.0); SEGMENTED NEUTROPHILS % (AUTO) 73.1 % (42-78); TOTAL CELLS COUNTED % (AUTO) 100 %; WHITE BLOOD COUNT 3.2 10^3/uL (4.0-10.5)
[2017-11-04] MEDS ORDERED: MORPHINE SULFATE 10 MG/ML INJ IV ONE (15:00)
[2017-11-04 15:01] LABS: ALANINE AMINOTRANSFERASE 25 U/L (9-52); ALBUMIN 4.1 g/dL (3.5-5.0); ALKALINE PHOSPHATASE 88 U/L (38-126); ANION GAP 13 (5-19); ASPARTATE AMINO TRANSFERASE 34 U/L (14-36); BILIRUBIN,DIRECT 0.5 mg/dL (0.0-0.4); BILIRUBIN,TOTAL 1.2 mg/dL (0.2-1.3); BLOOD UREA NITROGEN 19 mg/dL (7-20); CALCIUM 9.2 mg/dL (8.4-10.2); CARBON DIOXIDE 27 mmol/L (22-30); CHLORIDE 100 mmol/L (98-107); CREATINE KINASE 65 U/L (30-135); GLUCOSE 141 mg/dL (75-110); POTASSIUM 4.4 mmol/L (3.6-5.0); TOTAL PROTEIN 7.3 g/dL (6.3-8.2)
--- NOTE | 2017-11-04 15:02 | ER Document Report ---
ED General - General Chief Complaint: Chest Pain Stated Complaint: CHEST PAIN Time Seen by Provider: 11/04/17 14:10 Mode of Arrival: Medic Information source: Patient Notes: This is a 57-year-old female with a history of coronary artery disease who presents to the emergency room with nonradiating chest pressure associated with shortness of breath. TRAVEL OUTSIDE OF THE [place] IN LAST 30 DAYS: No - HPI Onset: Just prior to arrival Onset/Duration: Gradual Quality of pain: Dull Severity: Moderate Pain Level: 2 Associated symptoms: Chest pain. denies: Fever, Shortness of breath Exacerbated by: Denies Relieved by: Denies Similar symptoms previously: Yes Recently seen / treated by doctor: Yes - Related Data Allergies/Adverse Reactions: No Known Allergies Allergy (Verified 10/21/17 10:36) Past Medical History - General Information source: Patient - Social History Smoking Status: Never Smoker Cigarette use (# per day): No Chew tobacco use (# tins/day): No Frequency of alcohol use: None Drug Abuse: None Lives with: Family Family History: Reviewed & Not Pertinent, Other - copd Patient has suicidal ideation: No Patient has homicidal ideation: No - Past Medical History Cardiac Medical History: Reports: Hx Atrial Fibrillation, Hx Congestive Heart Failure, Hx Coronary Artery Disease, Hx Hypertension Denies: Hx Heart Attack Pulmonary Medical History: Denies: Hx Asthma, Hx Bronchitis, Hx COPD, Hx Pneumonia, Hx Tuberculosis Neurological Medical History: Denies: Hx Cerebrovascular Accident, Hx Seizures Endocrine Medical History: Reports: Hx Hypothyroidism Renal/ Medical History: Denies: Hx End Stage Renal Disease, Hx Kidney Stones, Hx Peritoneal Dialysis GI Medical History: Denies: Hx Cirrhosis, Hx Gastroesophageal Reflux Disease, Hx Ulcer Musculoskeltal Medical History: Reports Hx Arthritis - LEFT SHOULDER, Denies Hx Multiple Sclerosis Psychiatric Medical History: Reports: Hx Bipolar Disorder, Hx Depression Denies: Hx Schizophrenia Past Surgical History: Reports: Hx Appendectomy, Hx Cardiac Catheterization - Multiple stents, Hx Cardiac Surgery - CABG x 2, stents, Hx Section, Hx Cholecystectomy, Hx Coronary Artery Bypass Graft - Three-vessel, Hx Coronary Stent, Hx Tubal Ligation - Immunizations Hx Diphtheria, Pertussis, Tetanus Vaccination: Yes Review of Systems - Review of Systems Constitutional: denies: Chills, Fever EENT: No symptoms reported Cardiovascular: See HPI Respiratory: No symptoms reported Gastrointestinal: No symptoms reported Genitourinary: No symptoms reported Female Genitourinary: No symptoms reported Musculoskeletal: No symptoms reported Skin: No symptoms reported Hematologic/Lymphatic: No symptoms reported Neurological/Psychological: No symptoms reported Physical Exam - Vital signs Vitals: Pulse Ox 95 11/04/17 14:03 Notes: Physical exam: GENERAL: The 57-year-old female, alert and oriented 3, no acute distress HEAD: Atraumatic, normocephalic. EYES: Pupils equal round and reactive to light, extraocular movements intact, sclera anicteric, conjunctiva are normal. ENT: TMs normal, nares patent, oropharynx clear without exudates. Moist mucous membranes. NECK: Normal range of motion, supple without obvious mass or JVD. LUNGS: Breath sounds clear to auscultation bilaterally and equal. No wheezes rales or rhonchi. HEART: Regular rate and rhythm without murmurs, rubs or gallops. ABDOMEN: Soft, normoactive bowel sounds. No tenderness to palpation. No guarding, no rebound. No masses appreciated. EXTREMITIES: Normal range of motion, no pitting or edema. No clubbing or cyanosis. NEUROLOGICAL: Cranial nerves II through XII grossly intact. Normal speech, moving all extremities. PSYCH: Normal mood, normal affect. SKIN: Warm, Dry, normal turgor, no rashes or lesions noted. Course - Re-evaluation Re-evalutation: 11/04/17 19:52 Note: Patient's chest pain resolved with morphine and a GI cocktail. She was observed several hours in the ER. We did repeat a second troponin which was normal. Repeat EKG was unchanged. We reviewed the stress test from 2 weeks ago which was normal. I discussed the case with the typesetter perforator operator (Dr. Murillo) who saw the patient in the ER and cleared the patient for discharge. - Vital Signs Vital signs: Temp Pulse Resp BP Pulse Ox 98.4 F 84 15 123/51 L 93 11/04/17 14:24 11/04/17 14:24 11/04/17 19:57 11/04/17 19:57 11/04/17 19:57 - Laboratory Result Diagrams: 11/04/17 13:35 11/04/17 13:35 Laboratory results interpreted by me: 11/04/17 11/04/17 13:35 13:35 WBC 3.2 L Hgb 11.5 L Hct 34.7 L RDW 17.8 H Plt Count 61 L Est GFR ( Amer) 58 L Est GFR (Non-Af Amer) 48 L Glucose 141 H Direct Bilirubin 0.5 H - Diagnostic Test Radiology reviewed: Image reviewed, Reports reviewed - Chest x-ray shows no infiltrates or effusions - EKG Interpretation by Me Rate: Normal Rhythm: NSR - EKG shows sinus rhythm with a ventricular rate of 51, no acute ST- T wave changes Discharge - Discharge Clinical Impression: Chest pain Condition: Stable Disposition: HOME, SELF-CARE Additional Instructions: As we discussed, your cardiac enzymes look good today. Your EKG looked good. We did review the stress test from 2 weeks ago and he was seen by Dr. Murillo the typesetter perforator operator in the ER. I would like you to continue your current medicines and follow-up with Dr. Murillo. Return to the emergency room for any worsening chest pain. Referrals: FRANCESCA REYES MD [Primary Care Provider] - Follow up as needed EDDIE MURILLO MD [ACTIVE STAFF] - Follow up in 3-5 days
[2017-11-04 15:13] LABS: CREATINE KINASE MB 1.25 ng/mL (<4.55); TROPONIN I < 0.012 ng/mL
[2017-11-04 15:14] LABS: PLATELET COUNT 61 10^3/uL (150-450)
[2017-11-04] MEDS ORDERED: MORPHINE SULFATE 10 MG/ML INJ IV PRN ×2 (15:40→16:41)
[2017-11-04] MEDS ORDERED: NITROGLYCERIN 2% OINTMENT 1 GM PACKET TP ONE (16:00)
[2017-11-04] MEDS ORDERED: MAG HYDROX/AL HYDROX/SIMETH SUSP 30 ML UDCUP PO ONE (16:43)
[2017-11-04] MEDS ORDERED: METOCLOPRAMIDE HCL ORAL SOLN 10 MG/10 ML UDCUP PO ONE (16:43)
[2017-11-04] MEDS ORDERED: LIDOCAINE 2% VISCOUS SOLN 20 ML UDCUP PO ONE (16:43)
--- NOTE | 2017-11-04 18:22 | EKG REPORT ---
SEVERITY:- ABNORMAL ECG - SINUS BRADYCARDIA IVCD, : Confirmed by: Reagan Chavarria MD 04-Nov-2017 18:21:47
--- NOTE | 2017-11-04 18:23 | EKG REPORT ---
SEVERITY:- ABNORMAL ECG - SINUS RHYTHM NONSPECIFIC INTRAVENTRICULAR CONDUCTION DELAY : Confirmed by: Reagan Chavarria MD 04-Nov-2017 18:22:20
--- NOTE | 2017-11-04 20:12 | PDOC CONSULTATION ---
Consultation Consult Date: 11/04/17 Attending physician:: PRASHANT CROCKETT Consult reason:: Chest pain in patient with known CAD History of Present Illness Admission Date/PCP: FRANCESCA REYES MD Patient complains of: Chest pain History of Present Illness: GUS GRANDE is a 57 year old female, with known history of CAD having had 2 separate bypass surgery, who presents to the emergency department with chest pain lasting for several hours. Patient claims that her chest pain started earlier today while watching TV. Patient claims that she got a little short of breath. Patient had EKG which was noted to be negative. Cardiac enzymes 2 was noted to be negative. Patient was recently hospitalized and had a stress test which was felt to be relatively low risk. The ER physician had called me earlier about this patient, and I had advised the ER physician to give patient GI cocktail. However patient also had received some IV morphine. By the time I saw the patient she was completely chest pain-free. EKGs were noted to be negative for acute ischemia. Discussed disposition with the patient. She is agreeable to be discharged. Patient does have a cardiology follow-up appointment with me. Patient describes history of anxiety panic disorder. She also describes history of gastroesophageal reflux and is on Protonix. Patient' s other medications were reviewed. Past Medical History Cardiac Medical History: Reports: Atrial Fibrillation, Congestive Heart Failure , Coronary Artery Disease, Hypertension Denies: Myocardial Infarction Pulmonary Medical History: Denies: Asthma, Bronchitis, Chronic Obstructive Pulmonary Disease (COPD), Pneumonia, Tuberculosis Neurological Medical History: Denies: Seizures Endocrine Medical History: Reports: Hypothyroidism Renal/ Medical History: Denies: End Stage Renal Disease GI Medical History: Denies: Cirrhosis, Gastroesophageal Reflux Disease Musculoskeltal Medical History: Reports: Arthritis - LEFT SHOULDER Psychiatric Medical History: Reports: Bipolar Disorder, Depression Hematology: Reports: Anemia Denies: Bleeding Tendencies Past Surgical History Past Surgical History: Reports: Appendectomy, Cardiac Catheterization - Multiple stents, Section, Cholecystectomy, Coronary Artery Bypass Graft - Three-vessel, Coronary Stent, Tubal Ligation Social History Information Source: Patient Smoking Status: Unknown if Ever Smoked Frequency of Alcohol Use: Rare Hx Recreational Drug Use: No Drugs: None Hx Prescription Drug Abuse: No - Advance Directive Resuscitation Status: Full Code Surrogate healthcare decision maker:: Patient's daughter is the surrogate decision-maker Family History Family History: Hypertension - No family history of premature coronary artery disease or sudden cardiac in the immediate family members, Other - copd Parental Family History Reviewed: Yes Children Family History Reviewed: Yes Sibling(s) Family History Reviewed.: Yes Medication/Allergy Home Medications: Aspirin [Aspirin 325 mg Tablet] 325 mg PO DAILY 10/28/16 Cholecalciferol (Vitamin D3) [Vitamin D3 1000 Unit Tablet] 5,000 units PO DAILY 10/28/16 Duloxetine HCl 90 mg PO DAILY 10/28/16 Isosorbide Dinitrate 30 mg PO DAILY 10/28/16 Lamotrigine [Lamictal] 200 mg PO QHS 10/28/16 Nitroglycerin 1 spray SL PRN PRN 10/28/16 Amiodarone HCl [Cordarone 200 mg Tablet] 200 mg PO BID 10/21/17 Bisoprolol Fumarate [Zebeta 5 mg Tablet] 1 tab PO DAILY 10/21/17 Diltiazem HCl [Diltiazem ER] 120 mg PO BID 10/21/17 Docusate Sodium [Stool Softener] 100 mg PO BID 10/21/17 Furosemide [Lasix 20 mg Tablet] 20 mg PO BID 10/21/17 Levothyroxine Sodium [Synthroid 0.1 mg Tablet] 0.1 mg PO DAILY 10/21/17 Pantoprazole Sodium [Protonix] 40 mg PO DAILY 10/21/17 Potassium Chloride [Klor-Con M20] 20 meq PO DAILY 10/21/17 Tramadol HCl [Ultram 50 mg Tablet] 50 mg PO BID 10/21/17 Trazodone HCl [Desyrel 50 mg Tablet] 50 mg PO QHS 10/21/17 Loratadine [Claritin 10 mg Tablet] 10 mg PO DAILY tablet 10/22/17 Trazodone HCl [Desyrel 50 mg Tablet] 50 mg PO QHS tablet 10/22/17 Allergies/Adverse Reactions: No Known Allergies Allergy (Verified 10/21/17 10:36) Review of Systems Review of Systems: Please see history of present illness and past medical history as wall. Constitutional: No fever or chills reported. Head : No recent chronic headaches, recent head injury. Eyes: No recent eye pain, diplopia, redness, discharge, acute visual changes. Ears: No recent chronic ear pain, acute hearing loss, ear discharge. Oral cavity: No recent ulcerations, bleeding, oral cavity discomfort. Neck: No recent acute neck pain reported. Hematologic: No recent easy bruising or bleeding. Lymphatic: No recent lymph node enlargement reported. Cardiovascular system review: See history of present illness. Respiratory system review: No hemoptysis or blood clots in the lungs reported. Mild Shortness of breath on exertion Gastrointestinal system review: Negative for any recent acute hematemesis, melena. History of reflux. Genitourinary system review: No recent acute or chronic hematuria, flank pain, UTI etc. reported. Skin system review: Negative for any recent abnormal bruising, no rash, no pruritus reported. Neurologic: No prior history of strokes, mini strokes, seizure disorder. Psychologic: No history of major psychosis or major depression reported. History of minor bipolar disorder and anxiety panic disorder reported. Musculoskeletal: Minor aches and pains reported. No acute joint swelling reported. Endocrine: No recent polyuria, polydipsia, recent heat or cold intolerance. Physical Exam Vital Signs: Temp Pulse Resp BP Pulse Ox 98.4 F 84 14 130/66 H 94 11/04/17 14:24 11/04/17 14:24 11/04/17 19:01 11/04/17 19:01 11/04/17 19:01 Intake & Output 11/03/17 11/04/17 11/05/17 06:59 06:59 06:59 Weight 147.72 kg Exam: GENERAL: well-nourished and in no acute distress. Alert and oriented x3 HEAD: Atraumatic, normocephalic. EYES: Pupils equal round and reactive to light, extraocular movements intact, sclera anicteric, conjunctiva are normal. ENT: TMs normal, nares patent, oropharynx clear without exudates. Moist mucous membranes. No oral ulcerations or bleeding gums noted NECK: supple without lymphadenopathy. Trachea is central. No cervical or axillary lymphadenopathy noted. Carotids are 2+, JVD WNL LUNGS: Respiration seems nonlabored, no significant accessory muscle action noted. Breath sounds clear to auscultation bilaterally and equal noted. No wheezes rales or rhonchi noted. No significant dullness noted on percussion. CHEST: Palpation of the chest wall shows no significant chest wall tenderness. 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 ABDOMEN: Soft, no significant tenderness appreciated, normoactive bowel sounds. No guarding, no rebound. No rigidity noted . No masses appreciated. EXTREMITIES: Pedal pulses are 1-2+, no calf tenderness noted. No clubbing or cyanosis. Trace to 1+ pedal edema noted NEUROLOGICAL: Focused neurological exam showed no significant neurologic deficit. Normal speech, no focal weakness appreciated. PSYCH: Normal mood, normal affect. Judgment and insight within normal limits. SKIN: No significant ecchymosis, skin is noted to be warm. MUSCULOSKELETAL EXAM: No significant acute joint swelling noted. Results Laboratory Results: 11/04/17 13:35 11/04/17 13:35 11/04/17 11/04/17 13:35 13:35 WBC 3.2 L RBC 3.94 Hgb 11.5 L Hct 34.7 L MCV 88 MCH 29.2 MCHC 33.2 RDW 17.8 H Plt Count 61 L Seg Neutrophils % 73.1 Lymphocytes % 15.8 Monocytes % 8.9 Eosinophils % 1.8 Basophils % 0.4 Absolute Neutrophils 2.4 Absolute Lymphocytes 0.5 Absolute Monocytes 0.3 Absolute Eosinophils 0.1 Absolute Basophils 0.0 Sodium 140.0 Potassium 4.4 Chloride 100 Carbon Dioxide 27 Anion Gap 13 BUN 19 Creatinine 1.16 Est GFR ( Amer) 58 L Est GFR (Non-Af Amer) 48 L Glucose 141 H Calcium 9.2 Total Bilirubin 1.2 AST 34 ALT 25 Alkaline Phosphatase 88 Total Protein 7.3 Albumin 4.1 11/04/17 11/04/17 11/04/17 13:35 13:35 18:21 Creatine Kinase 65 CK-MB (CK-2) 1.25 Troponin I < 0.012 < 0.012 EKG Comments: Twelve-lead EKG 2 reviewed. They are noted to be negative for any acute ST-T wave changes. Mild sinus bradycardia and minor nonspecific IVCD noted. Impressions: Chest X-Ray 11/04/17 14:03 IMPRESSION: NO ACUTE RADIOGRAPHIC FINDING IN THE CHEST. Assessment & Plan - Diagnosis (1) Chest pain Qualifiers: Chest pain type: unspecified Is this a current diagnosis for this admission?: Yes (2) Coronary artery disease Qualifiers: Coronary Disease-Associated Artery/Lesion type: unspecified vessel or lesion type [place] vs. transplanted heart: [place] heart Associated angina: angina presence unspecified Qualified Code(s): I25.10 - Atherosclerotic heart disease of [place] coronary artery without angina pectoris Is this a current diagnosis for this admission?: Yes (3) Hypertension Qualifiers: Hypertension type: essential hypertension Is this a current diagnosis for this admission?: Yes (4) Obesity Qualifiers: Obesity type: unspecified obesity type Obesity classification: unspecified obesity classification Serious obesity comorbidity presence: unspecified whether serious comorbidity present Qualified Code(s): E66.9 - Obesity, unspecified Is this a current diagnosis for this admission?: Yes (5) Sleep-disordered breathing Is this a current diagnosis for this admission?: Yes (6) Bipolar disorder Qualifiers: Active/Remission status: remission status unspecified Qualified Code(s): F31.9 - Bipolar disorder, unspecified Is this a current diagnosis for this admission?: Yes (7) Peripheral edema Is this a current diagnosis for this admission?: Yes - Notes Notes: Chest pain: Chest pain was for several hours yet EKG 2 negative and 2 cardiac enzymes obtained 5 hours apart were noted to be negative. Patient chest pain resolved after GI cocktail. Recent stress test was fairly unremarkable. It is felt that patient chest discomfort is most likely noncardiac although patient has history of CAD. I feel it is safe enough for patient to be discharged with close cardiology follow-up. Patient told to return if she has any recurrent chest pain. CAD: Patient is status post CABG 2. Currently will need to optimize medical management. This can be performed as an outpatient. Hypertension: Currently stable. Patient to continue current regimen. Obesity: Currently stable. Patient advised in weight loss. Anxiety depression/bipolar disorder: Patient to continue with current regimen of medications. Peripheral edema: This is a chronic problem. Possibly dependency, venous insufficiency etc. Doubt CHF. Sleep apnea syndrome: Patient is very likely to have this condition. Patient will benefit from further evaluation and treatment of this. This can be performed as an outpatient. - Time Time Spent: 50 to 70 Minutes - CODE STATUS was discussed, patient remains full code. Surrogate decision-maker patient's daughter. Multiple medical problems were addressed. More than 50% of the time spent coordinating care, discussing management plans with involved caregivers. Management plans discussed with involved personnels. Medical decision making was of moderate to high complexity , patient's has multiple comorbidities. Medications reviewed and adjusted accordingly: Yes
[2017-11-04 20:31] VITALS: BP 123/51
== END 2017-11-04 19:57 | disposition home or self-care (01) ==
LOC: ER 14:00
DX: R07.9 Chest pain, unspecified (principal); I25.10 Atherosclerotic heart disease of native coronary artery without angina pectoris; I48.91 Unspecified atrial fibrillation; I50.9 Heart failure, unspecified; I10 Essential (primary) hypertension; E03.9 Hypothyroidism, unspecified; Z95.1 Presence of aortocoronary bypass graft; Z90.49 Acquired absence of other specified parts of digestive tract
CPT/HCPCS: 93005; 96376; 99285; 96374; 36415; 82553; 82550; 85025; 80053; 84484; 71045; 93010; A9270 ×2; J3490; J2270

== ENCOUNTER 2017-12-10 14:43 | Emergency (ER) | payer MEDICARE ==
[2017-12-10] MEDS ORDERED: ONDANSETRON 4 MG TAB.RAPDIS PO ONE (15:16)
[2017-12-10] MEDS ORDERED: ONDANSETRON 4 MG TAB.RAPDIS ONE ×2 (15:18→19:56)
[2017-12-10 15:22] LABS: ABSOLUTE EOSINOPHILS # (AUTO) 0.1 10^3/uL (0.0-0.6); ABSOLUTE LYMPHOCYTES (AUTO) 0.7 10^3/uL (0.5-4.7); ABSOLUTE MONOCYTES (AUTO) 0.4 10^3/uL (0.1-1.4); ABSOLUTE NEUT (AUTO) 2.8 10^3/uL (1.7-8.2); BASOPHILS % (AUTO) 0.8 % (0-2); EOSINOPHILS % (AUTO) 3.3 % (0-6); HEMATOCRIT 33.2 % (36.0-47.0); HEMOGLOBIN 11.2 g/dL (12.0-15.5); LYMPHOCYTES % (AUTO) 18.2 % (13-45); MEAN CORPUSCULAR HEMOGLOBIN 29.6 pg (27.0-33.4); MEAN CORPUSCULAR HGB CONC 33.6 g/dL (32.0-36.0); MEAN CORPUSCULAR VOLUME 88 fl (80-97); MONOCYTES % (AUTO) 9.2 % (3-13); RED BLOOD COUNT 3.78 10^6/uL (3.72-5.28); RED CELL DISTRIBUTION WIDTH 17.3 % (11.5-14.0); SEGMENTED NEUTROPHILS % (AUTO) 68.5 % (42-78); TOTAL CELLS COUNTED % (AUTO) 100 %; WHITE BLOOD COUNT 4.1 10^3/uL (4.0-10.5)
[2017-12-10 15:29] LABS: ALANINE AMINOTRANSFERASE 18 U/L (9-52); ALBUMIN 3.5 g/dL (3.5-5.0); ALKALINE PHOSPHATASE 70 U/L (38-126); ANION GAP 11 (5-19); ASPARTATE AMINO TRANSFERASE 32 U/L (14-36); BILIRUBIN,DIRECT 0.5 mg/dL (0.0-0.4); BILIRUBIN,TOTAL 1.8 mg/dL (0.2-1.3); BLOOD UREA NITROGEN 21 mg/dL (7-20); CARBON DIOXIDE 34 mmol/L (22-30); CHLORIDE 101 mmol/L (98-107); GLUCOSE 115 mg/dL (75-110); LIPASE 101.6 U/L (23-300); SODIUM 146.3 mmol/L (137-145); TOTAL PROTEIN 6.4 g/dL (6.3-8.2)
[2017-12-10] MEDS ORDERED: PANTOPRAZOLE SODIUM 40 MG VIAL IV ONE (15:43)
[2017-12-10 15:46] LABS: PLATELET COUNT 79 10^3/uL (150-450); PROTHROMBIN TIME 16.8 SEC (11.4-15.4)
--- NOTE | 2017-12-10 15:47 | ER Document Report ---
ED General - General Chief Complaint: GI Bleeding Stated Complaint: POSSIBLE GI BLEED Time Seen by Provider: 12/10/17 15:33 Notes: 57-year-old female presents emergency department with complaints of 2 episodes of coffee-ground emesis that occurred prior to arrival. She denies any abdominal pain. Patient states that she was having some nausea and when she vomited she noticed the emesis. Patient denies any diarrhea, constipation. Patient does have a history of esophagitis. She is following up with a GI physician outpatient for this. She states that she is currently on medication. She denies any chest pain, shortness of breath. TRAVEL OUTSIDE OF THE [place] IN LAST 30 DAYS: No - HPI Onset: Just prior to arrival Onset/Duration: Sudden Quality of pain: No pain Severity: None Associated symptoms: None Exacerbated by: Denies Relieved by: Denies Similar symptoms previously: No Recently seen / treated by doctor: No - Related Data Allergies/Adverse Reactions: No Known Allergies Allergy (Verified 10/21/17 10:36) Past Medical History - General Information source: Patient, Parent - Social History Smoking Status: Never Smoker Family History: Reviewed & Not Pertinent, Other - copd Patient has suicidal ideation: No Patient has homicidal ideation: No - Past Medical History Cardiac Medical History: Reports: Hx Atrial Fibrillation, Hx Congestive Heart Failure, Hx Coronary Artery Disease, Hx Hypertension Denies: Hx Heart Attack Pulmonary Medical History: Denies: Hx Asthma, Hx Bronchitis, Hx COPD, Hx Pneumonia, Hx Tuberculosis Neurological Medical History: Denies: Hx Cerebrovascular Accident, Hx Seizures Endocrine Medical History: Reports: Hx Hypothyroidism Renal/ Medical History: Denies: Hx End Stage Renal Disease, Hx Kidney Stones, Hx Peritoneal Dialysis GI Medical History: Denies: Hx Cirrhosis, Hx Gastroesophageal Reflux Disease, Hx Ulcer Musculoskeltal Medical History: Reports Hx Arthritis - LEFT SHOULDER, Denies Hx Multiple Sclerosis Psychiatric Medical History: Reports: Hx Bipolar Disorder, Hx Depression Denies: Hx Schizophrenia Past Surgical History: Reports: Hx Appendectomy, Hx Cardiac Catheterization - Multiple stents, Hx Cardiac Surgery - CABG x 2, stents, Hx Section, Hx Cholecystectomy, Hx Coronary Artery Bypass Graft - Three-vessel, Hx Coronary Stent, Hx Tubal Ligation - Immunizations Hx Diphtheria, Pertussis, Tetanus Vaccination: Yes Review of Systems - Review of Systems Constitutional: No symptoms reported EENT: No symptoms reported Cardiovascular: No symptoms reported Respiratory: No symptoms reported Gastrointestinal: Nausea, Vomiting, Blood in vomit Genitourinary: No symptoms reported Female Genitourinary: No symptoms reported Musculoskeletal: No symptoms reported Skin: No symptoms reported Hematologic/Lymphatic: No symptoms reported Neurological/Psychological: No symptoms reported -: Yes All other systems reviewed and negative Physical Exam - Vital signs Vitals: Resp Pulse Ox 18 93 12/10/17 15:01 12/10/17 15:01 Interpretation: Normal - Notes Notes: PHYSICAL EXAMINATION: GENERAL: Well-appearing, well-nourished and in no acute distress. HEAD: Atraumatic, normocephalic. EYES: Pupils equal round and reactive to light, extraocular movements intact, conjunctiva are normal. ENT: Nares patent, oropharynx clear without exudates. Moist mucous membranes. NECK: Normal range of motion, supple without lymphadenopathy LUNGS: Breath sounds clear to auscultation bilaterally and equal. No wheezes rales or rhonchi. HEART: Regular rate and rhythm without murmurs ABDOMEN: Soft, nontender, nondistended abdomen. No guarding, no rebound. No masses appreciated. Female : deferred Musculoskeletal: Normal range of motion, no pitting or edema. No cyanosis. NEUROLOGICAL: Cranial nerves grossly intact. Normal speech, normal gait. Normal sensory, motor exams PSYCH: Normal mood, normal affect. SKIN: Warm, Dry, normal turgor, no rashes or lesions noted. Course - Re-evaluation Re-evalutation: 12/10/17 16:28 EKG: Ventricular rate 83, castration 120, QTc 527, atrial fibrillation 12/10/17 20:13 Patient offered transfer to [facility] as we do not have GI coverage. Patient initially agreed to transfer. Patient is now declining transfer. She states that she will follow-up with her GI physician this week. I discussed leaving AGAINST MEDICAL ADVICE with the patient. She understands that her condition may worsen or she may by leaving AGAINST MEDICAL ADVICE. Patient is mentally competent and able to make her own decisions. She understands the risks and still wants to leave AGAINST MEDICAL ADVICE. - Vital Signs Vital signs: Temp Pulse Resp BP Pulse Ox 98.3 F 91 16 125/62 94 12/10/17 15:30 12/10/17 15:28 12/10/17 16:01 12/10/17 16:01 12/10/17 16:01 - Laboratory Result Diagrams: 12/10/17 14:55 12/10/17 14:55 Laboratory results interpreted by me: 12/10/17 12/10/17 12/10/17 14:55 14:55 14:55 Hgb 11.2 L Hct 33.2 L RDW 17.3 H Plt Count 79 L PT 16.8 H Sodium 146.3 H Carbon Dioxide 34 H BUN 21 H Glucose 115 H Total Bilirubin 1.8 H Direct Bilirubin 0.5 H Urine Urobilinogen 12/10/17 19:16 Hgb Hct RDW Plt Count PT Sodium Carbon Dioxide BUN Glucose Total Bilirubin Direct Bilirubin Urine Urobilinogen 4.0 H - EKG Interpretation by Me Additional EKG results interpreted by me: 12/10/17 20:14 EKG: Ventricular rate 83, KS interval 0, QRS duration 120, QTc 527, atrial fibrillation Discharge - Discharge Clinical Impression: Upper GI bleed Disposition: AGAINST MEDICAL ADVICE Referrals: EDDIE MURILLO MD [ACTIVE STAFF] - Follow up as needed
--- NOTE | 2017-12-10 17:21 | RADIOLOGY REPORT (SQ) ---
EXAM DESCRIPTION: CHEST SINGLE VIEW COMPLETED DATE/TIME: 12/10/2017 5:05 pm REASON FOR STUDY: upper gi bleed COMPARISON: 11/04/2017 EXAM PARAMETERS: NUMBER OF VIEWS: One view. TECHNIQUE: Single frontal radiographic view of the chest acquired. RADIATION DOSE: NA LIMITATIONS: None. FINDINGS: LUNGS AND PLEURA: No opacities, masses or pneumothorax. No pleural effusion. MEDIASTINUM AND HILAR STRUCTURES: No masses. Contour normal. HEART AND VASCULAR STRUCTURES: Stable cardiomegaly. Normal vasculature. BONES: No acute findings. HARDWARE: Stable midline surgical changes. Surgical clips project over the right upper lung. OTHER: No other significant finding. IMPRESSION: Stable radiographic appearance of the chest. No evidence of acute cardiopulmonary abnor mality. TECHNICAL DOCUMENTATION: JOB ID: [id number] [employer]- All Rights Reserved Reading location - IP/workstation name: [email or web address]
[2017-12-10 19:52] LABS: APPEARANCE,URINE CLEAR; BILIRUBIN,URINE NEGATIVE (NEGATIVE); COLOR,URINE YELLOW; GLUCOSE, URINE NEGATIVE (NEGATIVE); KETONES,URINE NEGATIVE (NEGATIVE); LEUKOCYTE ESTERASE,URINE NEGATIVE (NEGATIVE); NITRITE,URINE NEGATIVE (NEGATIVE); PROTEIN,URINE NEGATIVE (NEGATIVE); URINE SPECIFIC GRAVITY 1.018
--- NOTE | 2017-12-10 22:58 | EKG REPORT ---
SEVERITY:- ABNORMAL ECG - ATRIAL FIBRILLATION NONSPECIFIC INTRAVENTRICULAR CONDUCTION DELAY : Confirmed by: Valentine Orlando MD 10-Dec-2017 22:57:22
[2017-12-11 00:04] VITALS: BP 114/69
== END 2017-12-10 23:55 | disposition short-term general hospital (02) ==
LOC: ER 14:43
DX: K92.2 Gastrointestinal hemorrhage, unspecified (principal); K20.9 Esophagitis, unspecified; Z79.899 Other long term (current) drug therapy; I48.91 Unspecified atrial fibrillation; I25.10 Atherosclerotic heart disease of native coronary artery without angina pectoris; I10 Essential (primary) hypertension; Z95.5 Presence of coronary angioplasty implant and graft; Z95.1 Presence of aortocoronary bypass graft
CPT/HCPCS: 93005; 99285; 96374; 36415; 83690; 85025; 85610; 80053; 81001; 71045; 93010; A9270; C9113; S0119; S0164

== ENCOUNTER → 2017-12-26 | Outpatient (CLI) | payer MEDICARE ==
[2017-12-26 12:15] LABS: HEMATOCRIT 28.5 % (36.0-47.0); HEMOGLOBIN 9.5 g/dL (12.0-15.5); MEAN CORPUSCULAR HEMOGLOBIN 29.3 pg (27.0-33.4); MEAN CORPUSCULAR HGB CONC 33.2 g/dL (32.0-36.0); MEAN CORPUSCULAR VOLUME 88 fl (80-97); RED BLOOD COUNT 3.23 10^6/uL (3.72-5.28); RED CELL DISTRIBUTION WIDTH 18.6 % (11.5-14.0); WHITE BLOOD COUNT 2.8 10^3/uL (4.0-10.5)
[2017-12-26 12:39] LABS: PLATELET COUNT 58 10^3/uL (150-450)
== END ==
LOC: II 10:29
PROVIDERS: ATTEND Internal Medicine
DX: D64.9 Anemia, unspecified (principal); D69.6 Thrombocytopenia, unspecified; N18.9 Chronic kidney disease, unspecified
CPT/HCPCS: 36415; 86850; 86900; 86901; 86920